=== PATIENT | male | born 1940 | race Caucasian/White ===

== ENCOUNTER → 2017-06-26 | Outpatient (CLI) | payer OTHER ==
[~2017-06-26] MED LIST: ASPEC81 PO; ATV1 PO; BROM0.07 OPL; CHOL20007 PO; DORZ1SOL6 OPB; HYDR-4079 PO; ISOS60TA25 PO; LISI-789 PO; METO50TA16 PO; NIFE30TA83 PO; NTRGSL/4 UT; OMEP20CA9 PO; PRED1SUS3 OPL; SIMV40TA2 PO
[2017-06-26 13:25] LABS: BASO % 0.6 %; BASO ABS # 0.05 K/uL (0-0.2); COMPLETE YES; HEMATOCRIT 41.8 % (42-52); IG% 0.2 %; LYMPH % 30.2 %; LYMPH ABS # 2.53 K/uL (1.2-3.4); MEAN CELL VOLUME 92.1 fL (80-100); MEAN CORPUSCULAR HEMOGLOBIN 31.3 pg (25-34); MEAN PLATELET VOLUME 10.8 fL (7.4-10.4); PLATELET COUNT 225 K/uL (130-400); RED BLOOD COUNT 4.54 M/uL (4.7-6.1); WHITE BLOOD COUNT 8.39 K/uL (4.8-10.8)
[2017-06-26 13:34] LABS: ESTIMATED AVERAGE GLUCOSE 117 mg/dl; HA1C FLAG Normal (Normal)
[2017-06-26 14:01] LABS: ALT/SGPT 18 U/L (12-78); BLOOD UREA NITROGEN 14 mg/dl (7-18); BUN/CREATININE RATIO 17.9 (10-20); CALCIUM 8.9 mg/dl (8.5-10.1); CARBON DIOXIDE 25 mmol/L (21-32); CHLORIDE 108 mmol/L (98-107); CHOLESTEROL 145 mg/dl (0-200); CHOLESTEROL/HDL RATIO 2.6; CREATININE 0.78 mg/dl (0.60-1.40); GLUCOSE 104 mg/dl (70-99); HDL CHOLESTEROL 55 mg/dl; LDL CHOLESTEROL CALCULATED 57 mg/dl; POTASSIUM 4.1 mmol/L (3.5-5.1); SODIUM 140 mmol/L (136-145); TRIGLYCERIDES 163 mg/dl (0-150); VERY LOW DENSITY LIPOPROT CALC 33 mg/dl
[2017-06-26 14:04] LABS: ALB/GLOB RATIO 1.1 (0.9-2); ALKALINE PHOSPHATASE 54 U/L (45-117); AST/SGOT 18 U/L (15-37)
--- NOTE | 2017-07-08 10:47 | CODING QUERY MEDICAL NECESSITY ---
CQSUPPORTING DIAGNOSIS NEEDED A supporting diagnosis is required for the test/procedure performed on this patient in order for us to be reimbursed by the patient's insurance. Please provide a supporting diagnosis for the following test/procedure listed below next to the test name along with your signature. *If there is no additional diagnosis for this patient that would support the following test/procedure please document that below next to the test/procedure. Test(s)/Procedure(s) that require a supporting diagnosis: DOS 06/26/17 GLYCATED HEMOGLOBIN TEST LIPID TEST Provider Signature: Date: Thank you Fanta Varma Health Information Management Once completed, please kindly fax back to [phone] For questions please call [phone]
== END | disposition home or self-care (01) ==
LOC: C.LABBC 10:05
PROVIDERS: ATTEND Internal Medicine
DX: G89.4 Chronic pain syndrome (principal); E55.9 Vitamin D deficiency, unspecified

== ENCOUNTER 2021-07-12 10:06 | Inpatient (IN) ==
--- NOTE | 2021-07-12 10:28 | XRay Report ---
XR chest 1V portable HISTORY: Atypical Chest Pain COMPARISON: None. FINDINGS: No pneumothorax. The heart is mildly enlarged. There is diffuse interstitial/vascular thick ening most pronounced at the lung bases with small bilateral pleural effusions. This likely represent s mild pulmonary edema. Otherwise, no focal lung consolidations. IMPRESSION: Cardiomegaly with mild interstitial pulmonary edema and small bilateral pleural effusions. ACT 112: Negative or not required by law. Electronically signed by: Roger Burt M.D. 07/12/2021 10:27 AM
[2021-07-12] MEDS ORDERED: dilTIAZem HCl 5 MG/ML 5 ML VIAL IV STA ×2 (10:43→22:42)
[2021-07-12] MEDS ORDERED: STAT IV Infusion **Titration per Protocol STA (10:43)
[2021-07-12] MEDS ORDERED: dilTIAZem HCL 125 MG in DEXTROSE 5% 100 ML IV SCH (10:45)
--- NOTE | 2021-07-12 10:57 | Emergency Department Note ---
Impression & Plan Atrial fibrillation with rapid ventricular response, CHF (congestive heart failure), Precordial chest pain, Pedal edema ED Provider Note NAME: BRENTON HARPER AGE: 80 SEX: M : 1940 ARRIVES VIA: Walk-In INFORMANT: [Patient] ED PROVIDER(S): [Thomas Mathews MD] CHIEF COMPLAINT: Chest pain HISTORY OF PRESENT ILLNESS: The patient is a 80-year-old male who presents with 2 weeks of some edema to his feet and legs, some chest tightness and some increasing shortness of breath. No fever, no cough. The patient is vaccinated against COVID-19. The patient has not had any Covid exposures. The patient has noticed some discomfort across his chest. He states it is more of a tightness than anything. Its mild in severity. He has not fallen, there has been no vomiting or diarrhea. He is not sure if he took his morning medications today or not. REVIEW OF SYSTEMS: See HPI for pertinent positives and negatives. A total of ten systems were reviewed and were otherwise negative. PMHx/PSHx: See Below SOCIAL HISTORY: See Below. PHYSICAL EXAM: GENERAL: Patient is in no acute distress. HEENT: No acute trauma, normocephalic atraumatic, mucous membranes moist, no nasal congestion, no scleral icterus. NECK: No stridor, no adenopathy, no meningismus, trachea is midline. LUNGS: Clear to auscultation bilaterally, no wheeze, no rhonchi, breath sounds equal. HEART: Tachycardic with what appears to be a regular rhythm, subtle systolic murmur. ABDOMEN: Soft, nontender, bowel sounds positive, no hernias, no peritonitis. EXTREMITIES: No cyanosis, moderate bilateral pedal edema, full range of motion of all the joints without pain or difficulty, no signs for acute trauma. NEUROLOGIC: Oriented x 3, no acute motor or sensory deficits, no focal weakness. SKIN: No rash, no jaundice, no diaphoresis. DIFFERENTIAL DIAGNOSIS: Cardiac ischemia, aortic dissection, COVID-19, dysrhythmia, A. fib, a flutter, SVT, pulmonary embolism, pneumothorax, pneumonia, pericarditis, myocarditis, esophageal rupture, GERD, cholecystitis, pancreatitis, musculoskeletal, as well as other pathologies. EMERGENCY DEPARTMENT COURSE/PROCEDURES: ECG: Indication was shortness of breath. The ECG shows what appears to be atrial fibrillation with a rate of 145. There is no ST elevation, no PVCs. The QTc is 462. Repeat EKG: Indication was tachycardia. ECG shows atrial fibrillation with a rate of 109. There is no ST elevation, no PVCs. The QTc is 474. Compared to an ECG from earlier today, the rate has decreased. Continuous Cardiac Monitoring: An order was placed for continuous cardiac monitoring. The monitor shows a rate of 153 with atrial fibrillation. Critical Care Note: I have personally spent 47 minutes of critical care time in the direct management of this patient. This includes bedside care, interpretation of diagnostic studies, and testing, discussion with consultants, patient, and family members, and other required patient management activities. This 47 minutes is in excess of all separately billable procedures. MEDICAL DECISION MAKING: There is no leukocytosis or worrisome anemia. There is a normal platelet count. No coagulopathy. No significant electrolyte abnormality or kidney failure. No concerning liver enzyme elevation. The patient appeared to be in a euthyroid state. ECG shows what appears to be a rapid atrial fibrillation, no acute ischemia. Cardiac enzyme testing x1 is not consistent with acute cardiac injury. Chest x-ray shows some fluid overload/CHF. BNP is elevated consistent with CHF and fluid overload. Covid testing returned negative. I was approached by nursing staff to see the patient as he was quite tachycardic. Patient was aggressively managed. Patient was given a bolus of IV diltiazem. He was then placed on a diltiazem drip. This did help control the heart rate and the patient seemed to be improved. The patient was given IV Lasix for the CHF. I did speak with the patient and his family, I spoke with the medical case worker. The on-call hospitalist has been consulted. Admission is warranted. Past Med/Surg History Medical History (Updated 07/12/21 @ 16:04 by Thomas Mathews MD) History of kidney stones History of skin cancer Hypertension PVC (premature ventricular contraction) Surgical History History of angioplasty History of cardiac cath History of cataract extraction with lens replacement History of kidney surgery History of nasal surgery History of tonsillectomy and adenoidectomy History of wisdom tooth extraction Family History Father Lung cancer Aneurysm of abdominal aorta Aneurysm, thoracoabdominal aortic Mother Emphysema of lung Denies family history of Ovarian cancer Prostate cancer Diabetes Myocardial infarction Breast cancer Hypertension Social History Smoking Status: Former smoker Tobacco Type: Cigarettes Age Started Using Tobacco: 17; Years Smoked: 31; Cigarettes Per Day: states occassionally will have a cigarette to this day; Second Hand Exposure: No; Hx Alcohol Use: Yes Alcohol type: wine Alcohol Intake Frequency: Monthly or Less Alcohol Intake Frequency Comment: social Hx Substance Use: No Preferred Language: [place] Citizen Communication Ability: Effective Visual Impairment: Limited Hearing Ability: Normal marital status: Current Living Situation: Spouse current occupational status: retired How many Children do You have: 2 Feels Safe at Home: Yes Childhood Exposure to Second-Hand Smoke: Yes caffeine: Yes (drinks coffee daily, occassionally soda, rarely tea ) Dental Care, Regularly: Yes Physical Activity Frequency: Does not Exercise Physical Activity Frequency Comment: due to his back pain Seatbelt Use: always Sunscreen Use: No Allergies Allergies Allergy/AdvReac Type Severity Reaction Status Date / Time fluorescein Allergy Unknown UNKNOWN Verified 07/12/21 12:48 Iodinated Contrast Media Allergy Unknown HIVES Verified 07/12/21 12:48 shellfish derived Allergy Unknown HIVES Verified 07/12/21 12:48 Sulfa (Sulfonamide Allergy Unknown RASH/HIVES Verified 07/12/21 12:48 Antibiotics) Home Meds Home Medications Medication Instructions Recorded Confirmed cholecalciferol (vitamin D3) 25 2,000 units PO QAM cap 04/26/19 07/12/21 mcg (1,000 unit) capsule (Vitamin D3) dorzolamide 22.3 mg-timolol 6.8 1 drops OP BID ml 04/26/19 07/12/21 mg/mL eye drops (Cosopt) isosorbide mononitrate 60 mg 60 mg PO QAM tab 04/26/19 07/12/21 tablet,extended release 24 hr lisinopril 2.5 mg tablet (Zestril) 2.5 mg PO QAM tab 04/26/19 07/12/21 metoprolol tartrate 50 mg tablet 50 mg PO BID tab 04/26/19 07/12/21 nifedipine 30 mg tablet,extended 30 mg PO QAM tab 04/26/19 07/12/21 release simvastatin 40 mg tablet (Zocor) 40 mg PO HS tab 04/26/19 07/12/21 nitroglycerin 0.4 mg sublingual 0.4 mg SL Q5M PRN tab 07/24/19 07/12/21 tablet diclofenac sodium 1 % topical gel 4 g TOP QID PRN gm 03/13/21 07/12/21 (Voltaren Arthritis Pain) Lactobacillus rhamnosus GG 10 1 cap PO QDL 07/12/21 07/12/21 billion cell capsule (Culturelle) alfuzosin 10 mg tablet,extended 10 mg PO QDD 07/12/21 07/12/21 release 24 hr (Uroxatral) aspirin 81 mg tablet,delayed 81 mg PO QAM 07/12/21 07/12/21 release (Aspirin Low Dose) multivitamin (Daily Multi-Vitamin) 1 tab PO QAM 07/12/21 07/12/21 omeprazole 20 mg capsule,delayed 20 mg PO QAM 07/12/21 07/12/21 release Previous Rx's Medication Instructions Recorded hydrocodone 10 mg-acetaminophen 1 tab PO TID PRN #90 tab 06/20/21 325 mg tablet lorazepam 1 mg tablet (Ativan) 1 mg PO DAILY PRN #30 tab 06/20/21 Results & Data (ED) Vital Signs Vital Signs - 24 hr 07/12/21 10:09 07/12/21 10:30 07/12/21 10:34 Temperature 36.3 C L Temperature Source Temporal Artery Scan Pulse Rate 153 H 144 H Pulse Rate [Finger] 144 H Pulse Rate from SpO2 Sensor Pulse Rhythm [Finger] Irregular Respiratory Rate 22 16 20 Blood Pressure Blood Pressure [Right Arm] 135/104 H Blood Pressure Mean Blood Pressure Mean [Right Arm] 114 Pulse Oximetry 95 Oxygen Delivery Method Room Air Sepsis Recent Fever Within 48 Hours No Sepsis New/Unexplained Change in Mental Status No Sepsis Action Taken by Nursing No Action Required 07/12/21 10:36 07/12/21 11:00 07/12/21 11:06 Temperature Temperature Source Pulse Rate 117 H Pulse Rate [Finger] Pulse Rate from SpO2 Sensor 115 H Pulse Rhythm [Finger] Respiratory Rate 12 Blood Pressure Blood Pressure [Right Arm] Blood Pressure Mean Blood Pressure Mean [Right Arm] Pulse Oximetry 96 94 Oxygen Delivery Method Room Air Room Air Room Air Sepsis Recent Fever Within 48 Hours Sepsis New/Unexplained Change in Mental Status Sepsis Action Taken by Nursing 07/12/21 11:08 07/12/21 11:15 07/12/21 11:19 Temperature Temperature Source Pulse Rate 132 H Pulse Rate [Finger] 130 H Pulse Rate from SpO2 Sensor 146 H Pulse Rhythm [Finger] Irregular Respiratory Rate 20 26 H Blood Pressure Blood Pressure [Right Arm] 141/104 H Blood Pressure Mean Blood Pressure Mean [Right Arm] 116 Pulse Oximetry 96 96 96 Oxygen Delivery Method Room Air Room Air Room Air Sepsis Recent Fever Within 48 Hours Sepsis New/Unexplained Change in Mental Status Sepsis Action Taken by Nursing 07/12/21 11:30 07/12/21 11:45 07/12/21 12:00 Temperature Temperature Source Pulse Rate 142 H 149 H 143 H Pulse Rate [Finger] Pulse Rate from SpO2 Sensor Pulse Rhythm [Finger] Respiratory Rate 24 20 25 H Blood Pressure 152/115 H 147/101 H Blood Pressure [Right Arm] Blood Pressure Mean 127 116 Blood Pressure Mean [Right Arm] Pulse Oximetry Oxygen Delivery Method Room Air Sepsis Recent Fever Within 48 Hours Sepsis New/Unexplained Change in Mental Status Sepsis Action Taken by Alf Medications Current Medication List: was personally reviewed by me Laboratory Data Attestation: I reviewed the patient's lab results. Result diagrams: 07/12/21 10:35 07/12/21 10:35 Lab Results 07/12/21 07/12/21 07/12/21 Range/Units 10:35 10:35 10:35 WBC 10.19 (4.8-10.8) K/uL RBC 4.06 L (4.7-6.1) M/uL Hgb 13.5 L (14.0-18.0) g/dL Hct 38.7 L (42-52) % MCV 95.3 (80-100) fL MCH 33.3 (25-34) pg MCHC 34.9 (32-36) g/dL RDW Std Deviation 45.4 (36.4-46.3) fL RDW Coeff of August 13.5 (11.5-14.5) % Plt Count 248 (130-400) K/uL MPV 11.4 H (7.4-10.4) fL Immature Gran % (Auto) 0.1 % Neut % (Auto) 75.8 % Lymph % (Auto) 15.6 % Cavalier % (Auto) 6.8 % Eos % (Auto) 1.3 % Baso % (Auto) 0.4 % Neut # (Auto) 7.73 H (1.4-6.5) K/uL Lymph # (Auto) 1.59 (1.2-3.4) K/uL Cavalier # (Auto) 0.69 H (0.11-0.59) K/uL Eos # (Auto) 0.13 (0-0.5) K/uL Baso # (Auto) 0.04 (0-0.2) K/uL Immature Gran # (Auto) 0.01 (0.00-0.02) K/uL PT 10.7 (9.0-12.0) Seconds INR 1.1 (0.9-1.1) APTT 24.7 (21.0-31.0) Seconds PTT Ratio 0.9 Sodium 138 (136-145) mmol/L Potassium 4.0 (3.5-5.1) mmol/L Chloride 109 H (98-107) mmol/L Carbon Dioxide 24 (21-32) mmol/L Anion Gap 5.0 (3-11) BUN 18 (7-18) mg/dl Creatinine 0.97 (0.6-1.4) mg/dl Est Cr Clr Drug Dosing 74.1 ml/min Est GFR ( Amer) 84.5 ml/min Est GFR (Non-Af Amer) 72.9 ml/min BUN/Creatinine Ratio 19.0 (10-20) Glucose 124 H (70-99) mg/dl Calcium 9.4 (8.5-10.1) mg/dl Magnesium 2.1 (1.8-2.4) mg/dl Total Bilirubin 1.1 H (0.2-1) mg/dl AST 14 L (15-37) U/L ALT 15 (12-78) U/L Alkaline Phosphatase 68 (45-117) U/L Troponin I < 0.015 (0-0.045) ng/ml NT-Pro-B Natriuret Pep 3035 H (0-1800) pg/ml Total Protein 7.7 (6.4-8.2) gm/dl Albumin 3.7 (3.4-5.0) gm/dl Globulin 4.0 (2.5-4.0) gm/dl Albumin/Globulin Ratio 0.9 (0.9-2) TSH 1.620 (0.300-4.500) uIu/ml COVID-19 Eval Order SARS-CoV-2 (PCR) (Negative) 07/12/21 07/12/21 07/12/21 Range/Units 10:35 11:26 11:26 WBC (4.8-10.8) K/uL RBC (4.7-6.1) M/uL Hgb (14.0-18.0) g/dL Hct (42-52) % MCV (80-100) fL MCH (25-34) pg MCHC (32-36) g/dL RDW Std Deviation (36.4-46.3) fL RDW Coeff of August (11.5-14.5) % Plt Count (130-400) K/uL MPV (7.4-10.4) fL Immature Gran % (Auto) % Neut % (Auto) % Lymph % (Auto) % Cavalier % (Auto) % Eos % (Auto) % Baso % (Auto) % Neut # (Auto) (1.4-6.5) K/uL Lymph # (Auto) (1.2-3.4) K/uL Cavalier # (Auto) (0.11-0.59) K/uL Eos # (Auto) (0-0.5) K/uL Baso # (Auto) (0-0.2) K/uL Immature Gran # (Auto) (0.00-0.02) K/uL PT (9.0-12.0) Seconds INR (0.9-1.1) APTT (21.0-31.0) Seconds PTT Ratio Sodium (136-145) mmol/L Potassium (3.5-5.1) mmol/L Chloride (98-107) mmol/L Carbon Dioxide (21-32) mmol/L Anion Gap (3-11) BUN (7-18) mg/dl Creatinine (0.6-1.4) mg/dl Est Cr Clr Drug Dosing ml/min Est GFR ( Amer) ml/min Est GFR (Non-Af Amer) ml/min BUN/Creatinine Ratio (10-20) Glucose (70-99) mg/dl Calcium (8.5-10.1) mg/dl Magnesium Cancelled (1.8-2.4) mg/dl Total Bilirubin (0.2-1) mg/dl AST (15-37) U/L ALT (12-78) U/L Alkaline Phosphatase (45-117) U/L Troponin I (0-0.045) ng/ml NT-Pro-B Natriuret Pep Cancelled (0-1800) pg/ml Total Protein (6.4-8.2) gm/dl Albumin (3.4-5.0) gm/dl Globulin (2.5-4.0) gm/dl Albumin/Globulin Ratio (0.9-2) TSH Cancelled (0.300-4.500) uIu/ml COVID-19 Eval Order Covid19 at [facility] SARS-CoV-2 (PCR) NEGATIVE (Negative) Administered Medications Heparin Sodium/Dextrose (Heparin Sodium/Dextrose) 25,000 units in 500 mls @ 20 mls/hr IV .Q24H SHERYL; Protocol Stop: 08/11/21 11:59 Last Admin: 07/12/21 12:21 Dose: 1,000 units/hr, 20 mls/hr Documented by: [id number] Cosigned by: [id number] Furosemide 40 mg/ Syringe 4 mls @ 4 mls/min IV Q8 SHERYL Stop: 08/11/21 15:59 Last Admin: 07/12/21 15:37 Dose: Not Given Documented by: [id number] Discontinued Medications Diltiazem HCl (Diltiazem Hcl 5 Mg/Ml 5 Ml Vial) 15 mg IV NOW STA Stop: 07/12/21 10:44 Last Admin: 07/12/21 10:49 Dose: 15 mg Documented by: [id number] Cosigned by: [id number] Furosemide (Furosemide 40 Mg/4 Ml Vial) 40 mg IV NOW STA Stop: 07/12/21 11:08 Last Admin: 07/12/21 11:22 Dose: 40 mg Documented by: [id number] Furosemide (Furosemide 40 Mg/4 Ml Vial) Confirm Administered Dose 40 mg IV .STK- MED ONE Stop: 07/12/21 15:35 Last Admin: 07/12/21 15:37 Dose: 40 mg Documented by: [id number] Diltiazem HCl 125 mg/ Dextrose 125 mls @ 10 mls/hr IV .[id number] [facility]; Protocol Stop: 08/11/21 10:44 Last Titration: 07/12/21 12:13 Dose: 0 mg/hr, 0 mls/hr Documented by: [id number] Cosigned by: [id number] Titration: 07/12/21 11:56 Dose: 0 mg/hr, 0 mls/hr Documented by: [id number] Cosigned by: [id number] Titration: 07/12/21 11:25 Dose: 10 mg/hr, 10 mls/hr Documented by: [id number] Cosigned by: [id number] Admin: 07/12/21 11:03 Dose: 5 mg/hr, 5 mls/hr Documented by: [id number] Cosigned by: [id number] Metoprolol Tartrate (Metoprolol Tartrate 1 Mg/Ml Vial) 5 mg IV NOW STA Stop: 07/12/21 11:49 Last Admin: 07/12/21 12:16 Dose: 5 mg Documented by: [id number] Metoprolol Tartrate (Metoprolol Tartrate 50 Mg Tab) 50 mg PO NOW STA Stop: 07/12/21 11:49 Last Admin: 07/12/21 12:19 Dose: 50 mg Documented by: [id number] Metoprolol Tartrate (Metoprolol Tartrate 1 Mg/Ml Vial) 5 mg IV NOW STA Stop: 07/12/21 12:47 Last Admin: 07/12/21 12:50 Dose: 5 mg Documented by: [id number] Metoprolol Tartrate (Metoprolol Tartrate 1 Mg/Ml Vial) 5 mg IV NOW STA Stop: 07/12/21 14:08 Last Admin: 07/12/21 14:11 Dose: 5 mg Documented by: [id number] Miscellaneous (Stat Iv Infusion Titration Per Protocol) 1 ea N/A NOW STA Stop: 07/12/21 10:44 Last Admin: 07/12/21 11:31 Dose: Not Given Documented by: [id number] Imaging Data Radiologist's Impression: Chest X-Ray 07/12/21 10:14 XR chest 1V portable HISTORY: Atypical Chest Pain COMPARISON: None. FINDINGS: No pneumothorax. The heart is mildly enlarged. There is diffuse i nterstitial/vascular thickening most pronounced at the lung bases with small bilateral pleural effusions. This likely represents mild pulmonary edema. Otherwise, no focal lung consolidations. IMPRESSION: Cardiomegaly with mild interstitial pulmonary edema and small bilateral pleural effusions. ACT 112: Negative or not required by law. Electronically signed by: Roger Burt M.D. 07/12/2021 10:27 AM Discharge Plan Visit Data Chief Complaint: Chest Pain Stated Complaint: SWOLLEN LEGS, CHEST PAINS, SOB ED Provider: Thomas Mathews Discharge Problem: Atrial fibrillation with rapid ventricular response, CHF (congestive heart failure), Precordial chest pain, Pedal edema Patient Disposition: Admitted As Inpatient Condition: Fair Discharge Instructions Interventions: ED Discharge Assessment Last Done: 07/12/21 15:48
[2021-07-12 11:01] LABS: Basophils # (auto) 0.04 K/uL (0-0.2); Basophils % (auto) 0.4 %; Eosinophils # (auto) 0.13 K/uL (0-0.5); Eosinophils % (auto) 1.3 %; Hematocrit (blood only) 38.7 % (42-52); Hemoglobin 13.5 g/dL (14.0-18.0); Immature Granulocytes # (auto) 0.01 K/uL (0.00-0.02); Immature Granulocytes % (auto) 0.1 %; Lymphocytes # (auto) 1.59 K/uL (1.2-3.4); Lymphocytes % (auto) 15.6 %; Mean Corpuscular Hemoglobin 33.3 pg (25-34); Mean Corpuscular Hgb Conc 34.9 g/dL (32-36); Mean Corpuscular Volume 95.3 fL (80-100); Mean Platelet Volume 11.4 fL (7.4-10.4); Monocytes # (auto) 0.69 K/uL (0.11-0.59); Monocytes % (auto) 6.8 %; Neutrophils # (auto) 7.73 K/uL (1.4-6.5); Neutrophils % (auto) 75.8 %; Platelet Count 248 K/uL (130-400); RDW Coefficient of Variation 13.5 % (11.5-14.5); RDW Standard Deviation 45.4 fL (36.4-46.3); Red Blood Count 4.06 M/uL (4.7-6.1); White Blood Count 10.19 K/uL (4.8-10.8)
[2021-07-12] MEDS ORDERED: FUROSEMIDE 40 MG/4 ML VIAL IV STA (11:07)
[2021-07-12 11:17] LABS: INR 1.1 (0.9-1.1); Partial Thromboplastin Ratio 0.9; Partial Thromboplastin Time 24.7 Seconds (21.0-31.0); Prothrombin Time 10.7 Seconds (9.0-12.0)
[2021-07-12 11:21] LABS: Alanine Aminotransferase 15 U/L (12-78); Albumin Level 3.7 gm/dl (3.4-5.0); Aspartate Aminotransferase 14 U/L (15-37); Bilirubin,Total 1.1 mg/dl (0.2-1); Blood Urea Nitrogen 18 mg/dl (7-18); Calcium 9.4 mg/dl (8.5-10.1); Carbon Dioxide 24 mmol/L (21-32); Chloride 109 mmol/L (98-107); Creatinine Clr Calc Pharmacy 74.1 ml/min; Est GFR (African American) 84.5 ml/min; Est GFR (Non-African American) 72.9 ml/min; Glucose 124 mg/dl (70-99); Magnesium 2.1 mg/dl (1.8-2.4); Sodium 138 mmol/L (136-145)
[2021-07-12 11:32] LABS: Albumin Globulin Ratio 0.9 (0.9-2); Alkaline Phosphatase 68 U/L (45-117); NT Pro B Type Natriuretic Pept 3035 pg/ml (0-1800); Total Protein 7.7 gm/dl (6.4-8.2); Troponin I < 0.015 ng/ml (0-0.045)
[2021-07-12] MEDS ORDERED: Heparin IV Adult Wt-Based Low-Dose *NO* Bolus Protocol IV SCH (11:46)
[2021-07-12] MEDS ORDERED: METOPROLOL TARTRATE 1 MG/ML VIAL IV STA ×5 (11:48→19:34)
[2021-07-12] MEDS ORDERED: METOPROLOL TARTRATE 50 MG TAB PO STA (11:48)
[2021-07-12] MEDS: HEPARIN SODIUM/DEXTROSE 25,000 UNITS/500 ML BAG IV SCH (12:21)
--- NOTE | 2021-07-12 12:42 | History & Physical Report ---
Date of Service July 12, 2021 Assessment & Plan (1) Afib: Plan: Patient with new onset afib with evidence of worsening HF, unknown of time of onset - CHADSVASC 2, HASBLED- 1 - Rate control at this time- Metoprolol tartrate 50mg PO now, Metoprolol 5mg IV x1 - Metoprolol IV 5mg q4 for HR >110 - Metoprolol 50mg PO BID- may need to increase dose or frequency- follow - Heparin low dose no bolus for anticoagulation- transition to oral agent when appropriate - Cardiology consulted for - rate vs. rhythm control and anticoagulation transition - Continue to diurese and maintain normal electrolytes - Baseline ECG from 2019 with NSR and Incomplete RBBB (2) CHF (congestive heart failure): Plan: HFpEF with exacerbation with evidence of volume overload on physical exam and CXR - Difficult to ascertain whether volume caused #1 or #1 is causing CHF exacerbation - Will need rate controlled- continue BB - Continue to diurese Lasix 40mg IV q8 - ECHO (3) Coronary artery disease: Plan: CAD with angioplasty in 1991 - Stress ECHO in 2020- fixed wall motion abnormality without ischemia- EF 55- 59%, mild MR - Continue Metoprolol dose adjust and frequency adjust for HR control - Continue Isosorbide - Continue ASA - Continue statin simvastatin 40mg daily - Baseline ECG from 2019 with NSR and Incomplete RBBB (4) Hypertension: Plan: Appears well controlled as outpatient with SBP<130s - Continue JOI, metoprolol - Hold Nifedipine - Continue with IV Lasix 40mg IV q8 (5) Hyperlipidemia: Plan: As above (6) AAA (abdominal aortic aneurysm): Plan: 3.1 cm AAA Aug 2020- follows with cardiology for imaging - As above BP, BB, lipid managemnt (7) Atherosclerosis of both carotid arteries: Plan: 50% bilateral without stenosis 2019 - as above (8) Back pain, lumbosacral: Plan: Chronic- is on narcotics at home (9) Obesity: Plan: Continue weight loss efforts as outpatient History of Present Illness Chief Complaint: Shortness of breath Primary Care Provider: Carlos Manuel Baez MD 80 YOM with past medical history of: [place](1991) with angioplasty, CAD, HTN, HLD, Obesity, previous smoker, chronic back pain 3.1 cm AAA. Patient comes in today for complaints of chest tightness and swelling in his bilateral lower legs. This has been going on for the past two weeks. The chest tightness occurs across his chest and is associated with increase in dyspnea. The dyspnea has been worse for the past week. This pressure can come with activity or at rest. He denies any radiation of the pressure or nausea or vomiting and it has not been associated with diaphoresis, light headedness or dizziness. The lower extremity swelling started in his feet about 2 weeks ago an continued to progress to right below the knees. It is equal bilaterally. He denies orthopnea, cough, or secretions. In the EMD, it was noted that he was in narrow complex tachycardia with HR 140-150s. He was given 10mg IV Diltiazem which decreased his HR to 120-130 and was noted to be in new onset atrial fibrill ation. He had routine labs drawn to include BNP and Troponin I. His electrolytes including Magnesium were in normal range, his Troponin I was negative, his BNP was [place] 3035. His TSH is 1.620. He was then placed on a Diltazem drip at 10mg/hour given 40mg IV Lasix and hospitalist service was notified for admission. Patient has not taken his medications at home this morning to include his Metoprolol tartrate of 50mg. Patient will be started on Heparin drip, admitted to PCU for rate control, ECHO, continue to diurese and consult cardiology. Patient follows with [facility]. Patient has received his COVID vaccine and his COVID test on admission is: Allergies Allergy/AdvReac Type Severity Reaction Status Date / Time fluorescein Allergy Unknown UNKNOWN Verified 07/12/21 12:48 Iodinated Contrast Media Allergy Unknown HIVES Verified 07/12/21 12:48 shellfish derived Allergy Unknown HIVES Verified 07/12/21 12:48 Sulfa (Sulfonamide Allergy Unknown RASH/HIVES Verified 07/12/21 12:48 Antibiotics) Home Medications Medication Instructions Recorded Confirmed Type cholecalciferol (vitamin D3) 25 2,000 units PO QAM cap 04/26/19 07/12/21 History mcg (1,000 unit) capsule (Vitamin D3) dorzolamide 22.3 mg-timolol 6.8 1 drops OP BID ml 04/26/19 07/12/21 History mg/mL eye drops (Cosopt) isosorbide mononitrate 60 mg 60 mg PO QAM tab 04/26/19 07/12/21 History tablet,extended release 24 hr lisinopril 2.5 mg tablet (Zestril) 2.5 mg PO QAM tab 04/26/19 07/12/21 History metoprolol tartrate 50 mg tablet 50 mg PO BID tab 04/26/19 07/12/21 History nifedipine 30 mg tablet,extended 30 mg PO QAM tab 04/26/19 07/12/21 History release simvastatin 40 mg tablet (Zocor) 40 mg PO HS tab 04/26/19 07/12/21 History nitroglycerin 0.4 mg sublingual 0.4 mg SL Q5M PRN tab 07/24/19 07/12/21 History tablet diclofenac sodium 1 % topical gel 4 g TOP QID PRN gm 03/13/21 07/12/21 History (Voltaren Arthritis Pain) hydrocodone 10 mg-acetaminophen 1 tab PO TID PRN #90 tab 06/20/21 07/12/21 Rx 325 mg tablet lorazepam 1 mg tablet (Ativan) 1 mg PO DAILY PRN #30 tab 06/20/21 07/12/21 Rx Lactobacillus rhamnosus GG 10 1 cap PO QDL 07/12/21 07/12/21 History billion cell capsule (Culturelle) alfuzosin 10 mg tablet,extended 10 mg PO QDD 07/12/21 07/12/21 History release 24 hr (Uroxatral) aspirin 81 mg tablet,delayed 81 mg PO QAM 07/12/21 07/12/21 History release (Aspirin Low Dose) multivitamin (Daily Multi-Vitamin) 1 tab PO QAM 07/12/21 07/12/21 History omeprazole 20 mg capsule,delayed 20 mg PO QAM 07/12/21 07/12/21 History release Past Med/Surg History Medical History (Updated 07/12/21 @ 16:04 by Thomas Mathews MD) History of kidney stones History of skin cancer Hypertension PVC (premature ventricular contraction) Surgical History History of angioplasty History of cardiac cath History of cataract extraction with lens replacement History of kidney surgery History of nasal surgery History of tonsillectomy and adenoidectomy History of wisdom tooth extraction Family History Father Lung cancer Aneurysm of abdominal aorta Aneurysm, thoracoabdominal aortic Mother Emphysema of lung Denies family history of Ovarian cancer Prostate cancer Diabetes Myocardial infarction Breast cancer Hypertension Social History Smoking Status: Never smoker Tobacco Type: Cigarettes Age Started Using Tobacco: 17; Years Smoked: 31; Cigarettes Per Day: states occassionally will have a cigarette to this day; Second Hand Exposure: No; Hx Alcohol Use: No Hx Substance Use: No Preferred Language: Upper Sorbian Communication Ability: Effective Visual Impairment: Limited Hearing Ability: Normal 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 Beliefs That Will Affect Care: None marital status: Current Living Situation: Spouse current occupational status: retired How many Children do You have: 2 Other Information That Helps Us Care for You: No Feels Safe at Home: Yes Safety Concerns: Feels Safe At This Time Childhood Exposure to Second-Hand Smoke: Yes caffeine: Yes (drinks coffee daily, occassionally soda, rarely tea ) Dental Care, Regularly: Yes Physical Activity Frequency: Does not Exercise Physical Activity Frequency Comment: due to his back pain Seatbelt Use: always Sunscreen Use: No Assistive Devices: None Review of Systems Review of Systems: REVIEW OF SYSTEMS: Constitutional: No fever, sweats or chills Eyes: No diplopia, no worsening or blurred vision ENT: normal hearing, no trouble swallowing Respiratory: (+) dyspnea at rest and with exertion, No cough, sputum, Cardiovascular: (+) chest tightness, leg swelling, No palpitations, Abdomen: No pain, nausea, vomiting, diarrhea or constipation Musculoskeletal: (+) chronic back pain, Neurologic: No weakness, numbness/tingling, or balance problems Psychiatric: No anxiety or depression Skin: No rash or itch Physical Exam Physical Exam: PHYSICAL EXAM: General: awake, alert, no apparent distress Head: Normocephalic, atraumatic ENT: PERRL, EOMI, no pharyngeal exudate, mucous membranes moist Neuro: AAO x 3, speech clear and appropriate, strength intact bilaterally 5/5, sensation intact and equal all extremities and dermatomes, no pronator drift Chest: equal rise and fall of the chest, no accessory muscle use, no heaves or thrills, Clear to auscultation, on room air, Cardiac: Irregular rate and rhythm, afib, skin warm dry, cap refill ~3 seconds, peripheral pulses +2 no JVD, no murmur, 2+ edema in shins, 3+edema to feet and ankles bilaterally GI: NABS x 4 quadrants, soft, nontender to palpation, no rebound, guarding or tenderness : Spontaneously voiding, no pain, no CVA tenderness, Extremities: Normal inspection, no erythema, calfs nontender to palpation Psych: Normal mood and affect Skin: no rash or erythema Results & Data Results & Data ([facility]) Vital Signs (Past 12 Hours) Vital Signs Temp Pulse Pulse Resp BP BP Pulse Ox 07/12/21 11:45 149 H 20 07/12/21 11:30 142 H 24 152/115 H 07/12/21 11:19 130 H 26 H 141/104 H 96 07/12/21 11:15 132 H 20 96 07/12/21 11:08 96 07/12/21 11:00 117 H 12 94 07/12/21 10:36 96 07/12/21 10:34 144 H 20 135/104 H 07/12/21 10:30 144 H 16 07/12/21 10:09 36.3 C L 153 H 22 95 Laboratory Results Abnormal lab results 07/12/21 07/12/21 Range/Units 10:35 10:35 RBC 4.06 L (4.7-6.1) M/uL Hgb 13.5 L (14.0-18.0) g/dL Hct 38.7 L (42-52) % MPV 11.4 H (7.4-10.4) fL Neut # (Auto) 7.73 H (1.4-6.5) K/uL [place] # (Auto) 0.69 H (0.11-0.59) K/uL Chloride 109 H (98-107) mmol/L Glucose 124 H (70-99) mg/dl Total Bilirubin 1.1 H (0.2-1) mg/dl AST 14 L (15-37) U/L NT-Pro-B Natriuret Pep 3035 H (0-1800) pg/ml Diagnostic Findings Chest X-Ray 07/12/21 10:14 XR chest 1V portable HISTORY: Atypical Chest Pain COMPARISON: None. FINDINGS: No pneumothorax. The heart is mildly enlarged. There is diffuse interstitial/vascular thickening most pronounced at the lung bases with small bilateral pleural effusions. This likely represents mild pulmonary edema. Otherwise, no focal lung consolidations. IMPRESSION: Cardiomegaly with mild interstitial pulmonary edema and small bilateral pleural effusions. ACT 112: Negative or not required by law. Electronically signed by: Roger Burt M.D. 07/12/2021 10:27 AM Medications Administered Heparin Sodium/Dextrose (Heparin Sodium/Dextrose) 25,000 units in 500 mls @ 20 mls/hr IV .Q24H SHERYL; Protocol Stop: 08/11/21 11:59 Last Admin: 07/12/21 12:21 Dose: 1,000 units/hr, 20 mls/hr Documented by: [id number] Cosigned by: [id number] Discontinued Medications Home Medications aspirin 81 mg tablet 162 mg PO DAILY tab 04/26/19 [History Confirmed 03/13/21] cholecalciferol (vitamin D3) 25 mcg (1,000 unit) capsule 2,000 units PO DAILY cap 04/26/19 [History Confirmed 03/13/21] dorzolamide 22.3 mg-timolol 6.8 mg/mL eye drops 1 drops OP BID ml 04/26/19 [History Confirmed 03/13/21] isosorbide mononitrate 60 mg tablet,extended release 24 hr 60 mg PO DAILY tab 04/26/19 [History Confirmed 03/13/21] lisinopril 2.5 mg tablet 2.5 mg PO DAILY tab 04/26/19 [History Confirmed 03/13/21] metoprolol tartrate 50 mg tablet 50 mg PO BID tab 04/26/19 [History Confirmed 03/13/21] nifedipine 30 mg tablet,extended release 30 mg PO DAILY tab 04/26/19 [History Confirmed 03/13/21] simvastatin 40 mg tablet 40 mg PO DAILY tab 04/26/19 [History Confirmed 03/13/21] nitroglycerin 0.4 mg sublingual tablet 0.4 mg SL PRN tab 07/24/19 [History Confirmed 03/13/21] multivitamin 1 cap PO DAILY 07/26/19 [History Confirmed 03/13/21] omeprazole 20 mg capsule,delayed release 20 mg PO DAILY #90 cap 09/04/20 [Rx Confirmed 03/13/21] diclofenac sodium 1 % topical gel 4 g TOP QID PRN gm 03/13/21 [History] alfuzosin 10 mg tablet,extended release 24 hr (Uroxatral) 10 mg PO DAILY #90 tab 06/12/21 [Rx Confirmed 06/12/21] hydrocodone 10 mg-acetaminophen 325 mg tablet 1 tab PO TID PRN #90 tab 06/20/21 [Rx] lorazepam 1 mg tablet (Ativan) 1 mg PO DAILY PRN #30 tab 06/20/21 [Rx] Active Medications Heparin Sodium/Dextrose (Heparin Sodium/Dextrose) 25,000 units in 500 mls @ 20 mls/hr IV .Q24H [facility]; Protocol Stop: 08/11/21 11:59 Last Admin: 07/12/21 12:21 Dose: 1,000 units/hr, 20 mls/hr Documented by: Diltiazem HCl (Diltiazem Hcl 5 Mg/Ml 5 Ml Vial) 15 mg IV NOW STA Stop: 07/12/21 10:44 Last Admin: 07/12/21 10:49 Dose: 15 mg Documented by: [id number] Cosigned by: [id number] Furosemide (Furosemide 40 Mg/4 Ml Vial) 40 mg IV NOW STA Stop: 07/12/21 11:08 Last Admin: 07/12/21 11:22 Dose: 40 mg Documented by: [id number] Diltiazem HCl 125 mg/ Dextrose 125 mls @ 10 mls/hr IV .[id number] [facility]; Protocol Stop: 08/11/21 10:44 Last Titration: 07/12/21 12:13 Dose: 0 mg/hr, 0 mls/hr Documented by: [id number] Cosigned by: [id number] Titration: 07/12/21 11:56 Dose: 0 mg/hr, 0 mls/hr Documented by: [id number] Cosigned by: [id number] Titration: 07/12/21 11:25 Dose: 10 mg/hr, 10 mls/hr Documented by: [id number] Cosigned by: [id number] Admin: 07/12/21 11:03 Dose: 5 mg/hr, 5 mls/hr Documented by: [id number] Cosigned by: [id number] Metoprolol Tartrate (Metoprolol Tartrate 1 Mg/Ml Vial) 5 mg IV NOW STA Stop: 07/12/21 11:49 Last Admin: 07/12/21 12:16 Dose: 5 mg Documented by: [id number] Metoprolol Tartrate (Metoprolol Tartrate 50 Mg Tab) 50 mg PO NOW STA Stop: 07/12/21 11:49 Last Admin: 07/12/21 12:19 Dose: 50 mg Documented by: [id number] Miscellaneous (Stat Iv Infusion Titration Per Protocol) 1 ea N/A NOW STA Stop: 07/12/21 10:44 Last Admin: 07/12/21 11:31 Dose: Not Given Documented by: [id number] ECG Additional Comments: Atrial fibrillation with rapid ventricular response Incomplete right bundle branch block Nonspecific ST abnormality Abnormal ECG When compared with ECG of 12-JUL-2021 10:14, (unconfirmed) Previous ECG has undetermined rhythm, needs review Code Status & VTE Plan Code Status CODE: FULL VTE: SCDs, Heparin drip VTE Prophylaxis Plan VTE Prophylaxis will be ordered: Yes Supervising Physician Co-Signing Physician Notes APPRENTICE PAINTER BRUSH Supervision note: I have personally seen and examined the patient and discussed and verified the abarca points of the history and physical along with the plan with OSCAR Small with the following exceptions and/or additions: This patient is an 80-year-old male with a history of HTN, GERD, CAD, hy perlipidemia, obesity, AAA, central retinal vessel occlusion, who presents to the ER with chest pressure shortness of breath and lower extremity edema. He was found to be in rapid atrial fibrillation with rates in the 140s and with evidence of acute on chronic diastolic CHF. He was started on diltiazem drip in the ER with only minimal effect, and was given IV Lasix for volume overload. He has no known history of atrial fibrillation. No weakness, numbness, tingling. No facial droop or slurred speech, no headaches. No history of bleeding. History and ROS reviewed as above Vitals reviewed Gen: AAOx3, NAD HEENT: Anicteric sclerae, EOMI CV: Tachycardic, irregularly irregular no mgr nl S1S2 Pulm: Positive bibasilar crackles, otherwise clear Abd: +BS soft NT ND no masses or hernias Ext: 3+ pitting edema of the feet/ankles/up to mid tibia, 2+ DP pulses Skin: No rashes, warm/dry Neuro: Full strength throughout Labs in radiology studies personally reviewed by me ECG reviewed 80-year-old male here with rapid atrial fibrillation acute on chronic diastolic CHF. TSH normal, electrolytes normal, troponin negative Admit to telemetry -Check echo -Appreciate cardiology consultation-May consider APRIL with cardioversion if not able to control with medications -Stop diltiazem drip and attempt to control with increased doses of p.o. metoprolol -Heparin drip for now, but will likely convert to Eliquis Diurese with IV Lasix and replace electrolytes as needed PG Care Time/CCT Total # of Minutes Spent Total Time Spent with Patient: Total time spent is greater than 50% in coordination of care (as documented) at patient's floor/unit and/or counseling patient: Coding Level of Care Code 89960 Initial Inpt Care Lvl 3 Diagnoses Afib I48.91 Coronary artery disease I25.10 Associated angina: without angina Coronary Disease-Associated Artery/Lesion type: [place] artery [place] vs. transplanted heart: [place] heart Hypertension I10 Hypertension type: essential hypertension Hyperlipidemia E78.2 Hyperlipidemia type: mixed hyperlipidemia Obesity E66.9 CHF (congestive heart failure) I50.9 Atherosclerosis of both carotid arteries I65.23 Back pain, lumbosacral M54.5 AAA (abdominal aortic aneurysm) I71.4 (1) Coronary artery disease Associated angina: without angina Coronary Disease-Associated Artery/Lesion type: [place] artery [place] vs. transplanted heart: [place] heart Qualified Code(s): I25.10 - Atherosclerotic heart disease of [place] coronary artery without angina pectoris (2) Hyperlipidemia Hyperlipidemia type: mixed hyperlipidemia Qualified Code(s): E78.2 - Mixed hyperlipidemia (3) Hypertension Hypertension type: essential hypertension Qualified Code(s): I10 - Essential (primary) hypertension
[2021-07-12] MEDS ORDERED: FUROSEMIDE 40 MG/4 ML VIAL IV SCH (14:00)
--- NOTE | 2021-07-12 14:16 | Cardiology Consultation ---
Date of Consultation July 12, 2021 Assessment & Plan (1) Atrial fibrillation with RVR: (2) Acute heart failure with reduced ejection fraction and diastolic dysfunction: (3) Coronary artery disease: (4) AAA (abdominal aortic aneurysm): 80-year-old patient with paroxysmal atrial fibrillation and rapid ventricular response with acute decompensated heart failure. Mildly reduced left ventricular systolic function noted per bedside echocardiogram. Agree with intravenous furosemide 40 mg 3 times daily. Maintain negative fluid balance. Follow daily weight, GFR, and electrolytes. New onset atrial fibrillation with rapid ventricular response. Suspect 2-week duration given history. Titrate metoprolol to 50 mg 3 times daily. Give additional 5 mg of intravenous Lopressor now. Consider IV Cardizem infusion overnight if heart rates remain difficult to control. IV anticoagulation with heparin. Consider APRIL guided external direct-current cardioversion pending clinical course and response to rate control strategy. All questions answered to satisfaction both the patient and his family members. Thank you for allow me to participate in the care of your patient. History of Present Illness Reason for Consultation: CHF, rapid atrial fib Requesting Physician: Emmett MOORE Attending Physician: Dr. Gunderson History of Present Illness 80-year-old patient presented emergency department with progressive shortness of breath, orthopnea, edema, and weight gain. Symptoms started approximately 14 days ago. Patient declined medical evaluation as recommended by his family members. He presented to the ED today with dyspnea. Treated with intravenous diltiazem, intravenous Lopressor, oral Lopressor, and intravenous furosemide in the ER. Mild clinical improvement noted. Cardiovascular history includes chronic CAD, dyslipidemia, and hypertension. No documented history of atrial fibrillation. Allergies Allergy/AdvReac Type Severity Reaction Status Date / Time fluorescein Allergy Unknown UNKNOWN Verified 07/12/21 12:48 Iodinated Contrast Media Allergy Unknown HIVES Verified 07/12/21 12:48 shellfish derived Allergy Unknown HIVES Verified 07/12/21 12:48 Sulfa (Sulfonamide Allergy Unknown RASH/HIVES Verified 07/12/21 12:48 Antibiotics) Home Medications Medication Instructions Recorded Confirmed Type cholecalciferol (vitamin D3) 25 2,000 units PO QAM cap 04/26/19 07/12/21 History mcg (1,000 unit) capsule (Vitamin D3) dorzolamide 22.3 mg-timolol 6.8 1 drops OP BID ml 04/26/19 07/12/21 History mg/mL eye drops (Cosopt) isosorbide mononitrate 60 mg 60 mg PO QAM tab 04/26/19 07/12/21 History tablet,extended release 24 hr lisinopril 2.5 mg tablet (Zestril) 2.5 mg PO QAM tab 04/26/19 07/12/21 History metoprolol tartrate 50 mg tablet 50 mg PO BID tab 04/26/19 07/12/21 History nifedipine 30 mg tablet,extended 30 mg PO QAM tab 04/26/19 07/12/21 History release simvastatin 40 mg tablet (Zocor) 40 mg PO HS tab 04/26/19 07/12/21 History nitroglycerin 0.4 mg sublingual 0.4 mg SL Q5M PRN tab 07/24/19 07/12/21 History tablet diclofenac sodium 1 % topical gel 4 g TOP QID PRN gm 03/13/21 07/12/21 History (Voltaren Arthritis Pain) hydrocodone 10 mg-acetaminophen 1 tab PO TID PRN #90 tab 06/20/21 07/12/21 Rx 325 mg tablet lorazepam 1 mg tablet (Ativan) 1 mg PO DAILY PRN #30 tab 06/20/21 07/12/21 Rx Lactobacillus rhamnosus GG 10 1 cap PO QDL 07/12/21 07/12/21 History billion cell capsule (Culturelle) alfuzosin 10 mg tablet,extended 10 mg PO QDD 07/12/21 07/12/21 History release 24 hr (Uroxatral) aspirin 81 mg tablet,delayed 81 mg PO QAM 07/12/21 07/12/21 History release (Aspirin Low Dose) multivitamin (Daily Multi-Vitamin) 1 tab PO QAM 07/12/21 07/12/21 History omeprazole 20 mg capsule,delayed 20 mg PO QAM 07/12/21 07/12/21 History release Patient History Medical History (Updated 07/12/21 @ 14:34 by Smooth Kelley DO) History of kidney stones History of skin cancer Hypertension PVC (premature ventricular contraction) Surgical History History of angioplasty History of cardiac cath History of cataract extraction with lens replacement History of kidney surgery History of nasal surgery History of tonsillectomy and adenoidectomy History of wisdom tooth extraction Family History Father Lung cancer Aneurysm of abdominal aorta Aneurysm, thoracoabdominal aortic Mother Emphysema of lung Denies family history of Ovarian cancer Prostate cancer Diabetes Myocardial infarction Breast cancer Hypertension Social History Smoking Status: Former smoker Tobacco Type: Cigarettes Age Started Using Tobacco: 17; Years Smoked: 31; Cigarettes Per Day: states occassionally will have a cigarette to this day; Second Hand Exposure: No; Hx Alcohol Use: Yes Alcohol type: wine Alcohol Intake Frequency: Monthly or Less Alcohol Intake Frequency Comment: social Hx Substance Use: No Preferred Language: Setswana Communication Ability: Effective Visual Impairment: Limited Hearing Ability: Normal marital status: Current Living Situation: Spouse current occupational status: retired How many Children do You have: 2 Feels Safe at Home: Yes Childhood Exposure to Second-Hand Smoke: Yes caffeine: Yes (drinks coffee daily, occassionally soda, rarely tea ) Dental Care, Regularly: Yes Physical Activity Frequency: Does not Exercise Physical Activity Frequency Comment: due to his back pain Seatbelt Use: always Sunscreen Use: No Review of Systems Review of Systems: All systems reviewed & are unremarkable except as noted in Subjective Physical Exam Constitutional: + ill appearing and + obese Respiratory: normal respiratory effort; no respiratory distress and no retractions Auscultation: + rales (Bases bilateral); no rhonchi and no wheezes Cardiovascular: Rate/Rhythm: + tachycardic and + irregularly irregular Heart Sounds: normal S1 and normal S2; no murmur Vessels: + JVD Extremities: + edema (2+ bilateral pedal and pretibial edema) Gastrointestinal (Abdomen): Inspection/Auscultation: abdomen normal to inspection and normal bowel sounds; abdomen not distended Percussion/Palpation: abdomen soft; abdomen nontender, no guarding and abdomen not rigid Neurologic: CN's II-XI intact bilaterally and moves all extremities; no focal motor deficits Motor/Sensory: no tremor Psychiatric: Orientation: alert and oriented x 3 Results & Data ([facility]) Vital Signs (Past 12 Hours) Vital Signs Temp Pulse Pulse Resp BP BP Pulse Ox 07/12/21 14:11 135 H 07/12/21 14:00 135 H 24 149/118 H 07/12/21 13:45 127 H 16 07/12/21 13:30 137 H 31 H 137/108 H 07/12/21 13:15 119 H 17 07/12/21 13:00 135 H 28 H 126/90 07/12/21 12:50 127 H 07/12/21 12:45 141 H 16 07/12/21 12:30 138 H 31 H 138/101 H 07/12/21 12:27 123 H 07/12/21 12:16 154 H 149/119 H 07/12/21 12:15 152 H 28 H 149/119 H 07/12/21 12:00 143 H 25 H 147/101 H 07/12/21 11:45 149 H 20 07/12/21 11:30 142 H 24 152/115 H 07/12/21 11:19 130 H 26 H 141/104 H 96 07/12/21 11:15 132 H 20 96 07/12/21 11:08 96 07/12/21 11:00 117 H 12 94 07/12/21 10:36 96 07/12/21 10:34 144 H 20 135/104 H 07/12/21 10:30 144 H 16 07/12/21 10:09 36.3 C L 153 H 22 95 (1) Coronary artery disease Coronary Disease-Associated Artery/Lesion type: [place] artery [place] vs. transplanted heart: [place] heart Associated angina: without angina Qualified Code(s): I25.10 - Atherosclerotic heart disease of [place] coronary artery without angina pectoris
[2021-07-12] MEDS ORDERED: FUROSEMIDE 40 MG/4 ML VIAL IV ONE (15:34)
[2021-07-12] MEDS: FUROSEMIDE 40 MG in SYRINGE 0 ML IV SCH ×2 (15:37→21:13)
[2021-07-12] MEDS ORDERED: ONDANSETRON INJ 2 MG/ML 2 ML VIAL IV PRN (19:05)
[2021-07-12] MEDS ORDERED: METOPROLOL TARTRATE 1 MG/ML VIAL IV PRN (19:05)
[2021-07-12] MEDS ORDERED: NITROGLYCERIN SL 0.4 MG/TAB TAB SL PRN (19:05)
[2021-07-12] MEDS ORDERED: ACETAMINOPHEN 325 MG TAB PO PRN (19:05)
[2021-07-12] MEDS ORDERED: LORazepam 1 MG TAB PO PRN ×2 (19:12→23:04)
[2021-07-12 19:31] LABS: Partial Thromboplastin Ratio 1.1; Partial Thromboplastin Time 28.6 Seconds (21.0-31.0)
[2021-07-12] MEDS: METOPROLOL TARTRATE 50 MG TAB PO SCH (19:32)
[2021-07-12] MEDS: HYDROcodone/ACETAMINOPHEN 10/325 TAB PO PRN (19:52)
[2021-07-12] MEDS ORDERED: HEPARIN SOD (PORCINE) 1000 UNIT/ML IV ONE (20:15)
[2021-07-12] MEDS: ALFUZOSIN HCL 10 MG TAB PO SCH (20:27)
[2021-07-12] MEDS ORDERED: METOPROLOL TARTRATE 50 MG TAB PO SCH (21:00)
[2021-07-12] MEDS: DORZOLAMIDE/TIMOLOL 22.3/6.8MG/ML 10 ML BTL OP SCH (21:12)
[2021-07-12] MEDS: SIMVASTATIN 40 MG TAB PO SCH (21:13)
[2021-07-12] MEDS ORDERED: dilTIAZem HCL 30 MG TAB PO ONE (23:02)
[2021-07-13] MEDS: METOPROLOL TARTRATE 50 MG TAB PO SCH ×2 (02:37→11:52)
[2021-07-13 02:39] LABS: Basophils # (auto) 0.04 K/uL (0-0.2); Basophils % (auto) 0.4 %; Eosinophils # (auto) 0.05 K/uL (0-0.5); Eosinophils % (auto) 0.6 %; Hemoglobin 12.8 g/dL (14.0-18.0); Immature Granulocytes # (auto) 0.01 K/uL (0.00-0.02); Immature Granulocytes % (auto) 0.1 %; Lymphocytes % (auto) 29.2 %; Mean Corpuscular Hemoglobin 30.9 pg (25-34); Mean Corpuscular Hgb Conc 33.7 g/dL (32-36); Mean Corpuscular Volume 91.8 fL (80-100); Mean Platelet Volume 10.8 fL (7.4-10.4); Neutrophils # (auto) 5.39 K/uL (1.4-6.5); Neutrophils % (auto) 60.7 %; Platelet Count 189 K/uL (130-400); RDW Coefficient of Variation 13.2 % (11.5-14.5); RDW Standard Deviation 44.2 fL (36.4-46.3); Red Blood Count 4.14 M/uL (4.7-6.1); White Blood Count 8.89 K/uL (4.8-10.8)
[2021-07-13 03:00] LABS: Partial Thromboplastin Ratio 1.8
[2021-07-13 03:22] LABS: BUN Creatinine Ratio 18.6 (10-20); Creatinine Clr Calc Pharmacy 73.5 ml/min; Est GFR (African American) 84.5 ml/min; Est GFR (Non-African American) 72.9 ml/min; Potassium 3.2 mmol/L (3.5-5.1)
[2021-07-13] MEDS ORDERED: POTASSIUM CHLORIDE CRTAB 20 MEQ TABCR PO STA (03:32)
[2021-07-13] MEDS ORDERED: POTASSIUM CHLORIDE CRTAB 20 MEQ TABCR PO ONE (05:30)
[2021-07-13] MEDS: FUROSEMIDE 40 MG in SYRINGE 0 ML IV SCH (06:01)
--- NOTE | 2021-07-13 07:01 | Electrocardiogram Report ---
Test Reason : Blood Pressure : / mmHG Vent. Rate : 109 BPM Atrial Rate : 122 BPM P-R Int : 000 ms QRS Dur : 092 ms QT Int : 352 ms P-R-T Axes : 000 040 036 degrees QTc Int : 474 ms Atrial fibrillation with rapid ventricular response Incomplete right bundle branch block Nonspecific ST abnormality Abnormal ECG When compared with ECG of 12-JUL-2021 10:14, (unconfirmed) Previous ECG has undetermined rhythm, needs review Confirmed by Bartolo Rendon ([id number]) on 07/13/2021 7:01:46 AM Referred By: REFERRED SELF Confirmed By:Ang Rendon
--- NOTE | 2021-07-13 07:01 | Electrocardiogram Report ---
Test Reason : Blood Pressure : / mmHG Vent. Rate : 145 BPM Atrial Rate : 057 BPM P-R Int : 000 ms QRS Dur : 088 ms QT Int : 298 ms P-R-T Axes : 000 039 029 degrees QTc Int : 462 ms Atrial fibrillation Incomplete right bundle branch block Nonspecific ST abnormality Abnormal ECG When compared with ECG of 28-OCT-2008 09:52, Atrial fibrillation has replaced sinus rhythm Criteria for Inferior-posterior infarct are no longer Present Confirmed by Bartolo Rendon ([id number]) on 07/13/2021 7:00:44 AM Referred By: Confirmed By:Ang Rendon
[2021-07-13] MEDS: PANTOprazole 40 MG TAB PO SCH (08:06)
[2021-07-13] MEDS: ASPIRIN 81 MG ECTAB PO SCH (08:06)
[2021-07-13] MEDS: DORZOLAMIDE/TIMOLOL 22.3/6.8MG/ML 10 ML BTL OP SCH ×2 (08:07→21:01)
[2021-07-13] MEDS ORDERED: LORazepam 0.5 MG/1 ML VIAL IV PRN (08:44)
[2021-07-13] MEDS ORDERED: dilTIAZem HCl 5 MG/ML 5 ML VIAL IV STA (08:47)
[2021-07-13] MEDS ORDERED: dilTIAZem HCl 5 MG/ML 5 ML VIAL IV ONE (08:51)
--- NOTE | 2021-07-13 08:54 | Hospitalist Progress Note ---
Date of Service July 13, 2021 Assessment & Plan (1) Afib: Plan: Patient with new onset afib with evidence of worsening HFrEF - CHADSVASC 2, HASBLED- 1 - Heparin low dose no bolus for anticoagulation- transition to oral agent when appropriate - Cardiology consulted increased metoprolol to 50 mg tid - poor rate control with increased metoprolol did respond favorably to diltiazem in the past, will try although soft blood pressures, did reduce some typical meds ( isosorbide nifedipine and lisinopril) Plan for cardioversion 07/15/21 (2) CHF (congestive heart failure): Plan: HFpEF with exacerbation maybe related to rate, appears euvolmic 07/14 - Will need rate controlled- continue BB - - ECHO shows EF 45-50, global hypo (3) Coronary artery disease: Plan: CAD with angioplasty in 1991 - Stress ECHO in 2020- fixed wall motion abnormality without ischemia, mild MR - Continue Metoprolol dose adjust and adjust for HR control - Continue Isosorbide, reduce dose to help with blood pressure - Continue ASA - Continue statin simvastatin 40mg daily - Baseline ECG from 2019 with NSR and Incomplete RBBB (4) Hypertension: Plan: Appears well controlled as outpatient with SBP<130s - , metoprolol - Hold Nifedipine, lisinoprol (5) Hyperlipidemia: Plan: As above (6) AAA (abdominal aortic aneurysm): Plan: 3.1 cm AAA Aug 2020- follows with cardiology for imaging - As above BP, BB, lipid managemnt (7) Atherosclerosis of both carotid arteries: Plan: 50% bilateral without stenosis 2019 - as above (8) Back pain, lumbosacral: Plan: Chronic- is on narcotics at home (9) Obesity: Plan: Continue weight loss efforts as outpatient Admission and Anticipated Discharge Date Admission Date: July 12, 2021 Results & Data [facility] Vital Signs (Past 12 Hours) Vital Signs Temp Pulse Pulse Resp BP Pulse Ox 07/13/21 06:43 97.5 F L 114 H 18 109/77 96 07/13/21 03:57 97.9 F 100 H 16 100/62 95 07/13/21 02:35 120 H 128/74 07/12/21 23:28 111 H 116/73 07/12/21 23:16 114 H 07/12/21 22:59 98 H 104/70 07/12/21 22:58 113 H 98/63 L 07/12/21 22:55 103 H 102/71 07/12/21 22:50 132 H 109/66 07/12/21 21:09 140 H 115/82 PG Care Time/CCT Total # of Minutes Spent Total Time Spent with Patient: Total time spent is greater than 50% in coordination of care (as documented) at patient's floor/unit and/or counseling patient: Coding Level of Care Code 82113 Subseq Hosp Care Lvl 2 Diagnoses Afib I48.91 CHF (congestive heart failure) I50.9 Coronary artery disease I25.10 Associated angina: without angina Coronary Disease-Associated Artery/Lesion type: [place] artery [place] vs. transplanted heart: [place] heart Hypertension I10 Hypertension type: essential hypertension Hyperlipidemia E78.2 Hyperlipidemia type: mixed hyperlipidemia AAA (abdominal aortic aneurysm) I71.4 Atherosclerosis of both carotid arteries I65.23 Back pain, lumbosacral M54.5 Obesity E66.9 (1) Coronary artery disease Associated angina: without angina Coronary Disease-Associated Artery/Lesion type: [place] artery [place] vs. transplanted heart: [place] heart Qualified Code(s): I25.10 - Atherosclerotic heart disease of [place] coronary artery without angina pectoris (2) Hyperlipidemia Hyperlipidemia type: mixed hyperlipidemia Qualified Code(s): E78.2 - Mixed hyperlipidemia (3) Hypertension Hypertension type: essential hypertension Qualified Code(s): I10 - Essential (primary) hypertension
[2021-07-13] MEDS ORDERED: lisinopril 2.5 MG TAB PO SCH (09:00)
[2021-07-13] MEDS ORDERED: dilTIAZem HCL 30 MG TAB PO SCH ×2 (09:00→11:00)
[2021-07-13] MEDS ORDERED: ISOSORBIDE MONO EXTENDED REL 60 MG TABCR PO SCH (09:00)
[2021-07-13] MEDS ORDERED: MAGNESIUM SULFATE / D5W 1 GM/100 ML BAG IV ONE (09:00)
[2021-07-13] MEDS: HEPARIN SODIUM/DEXTROSE 25,000 UNITS/500 ML BAG IV SCH (09:50)
[2021-07-13] MEDS: POTASSIUM CHLORIDE / WTR 10 MEQ/100 ML PLCT IV SCH ×3 (09:51→12:32)
[2021-07-13] MEDS: POTASSIUM CHLORIDE 10 MEQ / 100ML WTR IV SCH ×3 (11:14→11:47)
[2021-07-13] MEDS: HYDROcodone/ACETAMINOPHEN 10/325 TAB PO PRN ×2 (11:16→21:02)
--- NOTE | 2021-07-13 11:18 | Cardiology Progress Note ---
Date of Service July 13, 2021 Assessment & Plan (1) Atrial fibrillation with RVR: (2) Acute heart failure with reduced ejection fraction and diastolic dysfunction: (3) Coronary artery disease: (4) AAA (abdominal aortic aneurysm): Plan: 80-year-old patient with paroxysmal atrial fibrillation and rapid ventricular response with acute decompensated heart failure. Mildly reduced left ventricular systolic function echocardiogram. Patient has manifested brisk diuresis with improvement in symptoms of shortness of breath and overall edema. He remains in atrial fibrillation with elevated ventricular response rates with borderline blood pressures. Plan: Continue IV anticoagulation with heparin No further diuretics Potassium being supplemented We will hold oral and IV diltiazem given relative hypotension and titrate beta-cody higher. Agree with holding lisinopril and isosorbide We will follow heart rate response to above therapies closely Admission and Anticipated Discharge Date Admission Date: July 12, 2021 Subjective Patient was seen and examined, chart, medications, telemetry reviewed. Patient has remained in atrial fibrillation overnight with intermittently elevated heart rates. Transient hypotension this morning after IV diltiazem. Patient notes breathlessness but heart pounding hard but currently without complaint of chest pain or discomfort. Symptom duration approximately 1 to 2 weeks time with acute dyspnea x48 hours. Patient with brisk diuresis overnight of greater than 3 L Review of Systems Review of Systems: All systems reviewed & are unremarkable except as noted in Subjective Physical Exam Constitutional: + obese; no acute distress Eyes: PERRL, conjunctivae normal, anicteric sclerae ENMT: external ear and nose normal, oropharynx normal Neck: trachea midline, no thyromegaly Respiratory: normal respiratory effort; no respiratory distress and no retractions Auscultation: no rales (Bases bilateral) Cardiovascular: Rate/Rhythm: + tachycardic and + irregularly irregular Heart Sounds: normal S1 and normal S2; no murmur Extremities: + edema (Trace pedal edema improved from admission) Gastrointestinal (Abdomen): Inspection/Auscultation: abdomen normal to inspection and normal bowel sounds; abdomen not distended Percussion/Palpation: abdomen soft; abdomen nontender, no guarding and abdomen not rigid Musculoskeletal: no cyanosis or clubbing, extremities motor strength 5/5 Neurologic: CN's II-XI intact bilaterally and moves all extremities; no focal motor deficits Motor/Sensory: no tremor Psychiatric: Orientation: alert and oriented x 3 Results & Data ([facility]) Vital Signs (Past 12 Hours) Vital Signs Temp Pulse Pulse Resp BP Pulse Ox 07/13/21 10:01 110 H 07/13/21 08:58 145 H 101/67 07/13/21 06:43 36.4 C L 114 H 18 109/77 96 07/13/21 03:57 36.6 C 100 H 16 100/62 95 07/13/21 02:35 120 H 128/74 07/12/21 23:28 111 H 116/73 Laboratory Results Laboratory Results - last 24 hr 07/12/21 07/12/21 07/12/21 10:35 11:26 11:26 WBC RBC Hgb Hct MCV MCH MCHC RDW Std Deviation RDW Coeff of August Plt Count MPV Immature Gran % (Auto) Neut % (Auto) Lymph % (Auto) [place] % (Auto) Eos % (Auto) Baso % (Auto) Neut # (Auto) Lymph # (Auto) [place] # (Auto) Eos # (Auto) Baso # (Auto) Immature Gran # (Auto) APTT PTT Ratio Sodium Potassium Chloride Carbon Dioxide Anion Gap BUN Creatinine Est Cr Clr Drug Dosing Est GFR ( Amer) Est GFR (Non-Af Amer) BUN/Creatinine Ratio Glucose Calcium Magnesium Alkaline Phosphatase 68 Troponin I < 0.015 NT-Pro-B Natriuret Pep 3035 H Total Protein 7.7 Globulin 4.0 Albumin/Globulin Ratio 0.9 TSH 1.620 COVID-19 Eval Order Covid19 at [facility] SARS-CoV-2 (PCR) NEGATIVE 07/12/21 07/12/21 07/13/21 19:07 19:08 02:27 WBC 8.89 RBC 4.14 L Hgb 12.8 L Hct 38.0 L MCV 91.8 MCH 30.9 MCHC 33.7 RDW Std Deviation 44.2 RDW Coeff of August 13.2 Plt Count 189 MPV 10.8 H Immature Gran % (Auto) 0.1 Neut % (Auto) 60.7 Lymph % (Auto) 29.2 [place] % (Auto) 9.0 Eos % (Auto) 0.6 Baso % (Auto) 0.4 Neut # (Auto) 5.39 Lymph # (Auto) 2.60 [place] # (Auto) 0.80 H Eos # (Auto) 0.05 Baso # (Auto) 0.04 Immature Gran # (Auto) 0.01 APTT 28.6 PTT Ratio 1.1 Sodium Potassium Chloride Carbon Dioxide Anion Gap BUN Creatinine Est Cr Clr Drug Dosing Est GFR ( Amer) Est GFR (Non-Af Amer) BUN/Creatinine Ratio Glucose Calcium Magnesium Alkaline Phosphatase Troponin I < 0.015 NT-Pro-B Natriuret Pep Total Protein Globulin Albumin/Globulin Ratio [facility] COVID-19 Eval Order SARS-CoV-2 (PCR) 07/13/21 07/13/21 02:27 02:28 WBC RBC Hgb Hct MCV MCH MCHC RDW Std Deviation RDW Coeff of August Plt Count MPV Immature Gran % (Auto) Neut % (Auto) Lymph % (Auto) [place] % (Auto) Eos % (Auto) Baso % (Auto) Neut # (Auto) Lymph # (Auto) [place] # (Auto) Eos # (Auto) Baso # (Auto) Immature Gran # (Auto) APTT 47.0 H* PTT Ratio 1.8 Sodium 139 Potassium 3.2 L D Chloride 105 Carbon Dioxide 27 Anion Gap 7.0 BUN 18 Creatinine 0.97 Est Cr Clr Drug Dosing 73.5 Est GFR ( Amer) 84.5 Est GFR (Non-Af Amer) 72.9 BUN/Creatinine Ratio 18.6 Glucose 104 H Calcium 9.0 Magnesium 2.0 Alkaline Phosphatase Troponin I NT-Pro-B Natriuret Pep Total Protein Globulin Albumin/Globulin Ratio [facility] COVID-19 Eval Order SARS-CoV-2 (PCR) (1) Coronary artery disease Coronary Disease-Associated Artery/Lesion type: [place] artery [place] vs. transplanted heart: [place] heart Associated angina: without angina Qualified Code(s): I25.10 - Atherosclerotic heart disease of [place] coronary artery without angina pectoris
[2021-07-13] MEDS: METOPROLOL SUCC 50MG EXT REL TAB PO SCH ×2 (13:46→21:04)
[2021-07-13] MEDS: LORazepam 0.5 MG TAB PO PRN (13:52)
[2021-07-13] MEDS: ALFUZOSIN HCL 10 MG TAB PO SCH (16:53)
[2021-07-13] MEDS: SIMVASTATIN 40 MG TAB PO SCH (21:02)
[2021-07-13] MEDS ORDERED: METOPROLOL TARTRATE 1 MG/ML VIAL IV STA (22:25)
[2021-07-13] MEDS ORDERED: Nursing to Pharmacy Communication SCH (23:15)
[2021-07-13] MEDS ORDERED: DIGOXIN 250 MCG in SYRINGE 9 ML IV ONE (23:45)
[2021-07-14] MEDS: LORazepam 0.5 MG TAB PO PRN ×3 (00:04→21:15)
[2021-07-14] MEDS ORDERED: DIGOXIN 250 MCG in SYRINGE 9 ML IV ONE (01:00)
[2021-07-14 06:39] LABS: Basophils # (auto) 0.03 K/uL (0-0.2); Basophils % (auto) 0.4 %; Eosinophils # (auto) 0.12 K/uL (0-0.5); Eosinophils % (auto) 1.7 %; Hematocrit (blood only) 35.3 % (42-52); Immature Granulocytes # (auto) 0.01 K/uL (0.00-0.02); Immature Granulocytes % (auto) 0.1 %; Lymphocytes # (auto) 1.89 K/uL (1.2-3.4); Lymphocytes % (auto) 27.4 %; Mean Corpuscular Hemoglobin 31.1 pg (25-34); Mean Corpuscular Volume 91.5 fL (80-100); Mean Platelet Volume 11.1 fL (7.4-10.4); Monocytes # (auto) 0.78 K/uL (0.11-0.59); Monocytes % (auto) 11.3 %; Neutrophils # (auto) 4.07 K/uL (1.4-6.5); Neutrophils % (auto) 59.1 %; Platelet Count 194 K/uL (130-400); RDW Coefficient of Variation 13.3 % (11.5-14.5); RDW Standard Deviation 43.3 fL (36.4-46.3); Red Blood Count 3.86 M/uL (4.7-6.1)
[2021-07-14 07:02] LABS: BUN Creatinine Ratio 21.8 (10-20); Calcium 8.7 mg/dl (8.5-10.1); Creatinine Clr Calc Pharmacy 67.7 ml/min; Est GFR (African American) 78.6 ml/min; Est GFR (Non-African American) 67.8 ml/min; Potassium 3.3 mmol/L (3.5-5.1)
[2021-07-14 07:03] LABS: Partial Thromboplastin Ratio 1.5; Partial Thromboplastin Time 38.2 Seconds (21.0-31.0)
[2021-07-14] MEDS: HEPARIN SODIUM/DEXTROSE 25,000 UNITS/500 ML BAG IV SCH ×4 (07:09→13:52)
[2021-07-14] MEDS: PANTOprazole 40 MG TAB PO SCH (08:58)
[2021-07-14] MEDS: ISOSORBIDE MONO EXTENDED REL 30 MG TABCR PO SCH (08:58)
[2021-07-14] MEDS: METOPROLOL SUCC 50MG EXT REL TAB PO SCH ×3 (08:58→21:14)
[2021-07-14] MEDS: ASPIRIN 81 MG ECTAB PO SCH (08:58)
[2021-07-14] MEDS: DORZOLAMIDE/TIMOLOL 22.3/6.8MG/ML 10 ML BTL OP SCH ×2 (08:59→21:13)
[2021-07-14] MEDS: POTASSIUM CHLORIDE CRTAB 20 MEQ TABCR PO SCH ×2 (09:02→21:15)
[2021-07-14] MEDS: HYDROcodone/ACETAMINOPHEN 10/325 TAB PO PRN ×2 (10:45→21:15)
[2021-07-14] MEDS: POTASSIUM CHLORIDE 10 MEQ / 100ML WTR IV SCH ×3 (10:46→13:48)
--- NOTE | 2021-07-14 11:26 | Cardiology Progress Note ---
Date of Service July 14, 2021 Assessment & Plan (1) Atrial fibrillation with RVR: (2) Acute heart failure with reduced ejection fraction and diastolic dysfunction: (3) Coronary artery disease: (4) AAA (abdominal aortic aneurysm): Plan: 80-year-old patient with paroxysmal atrial fibrillation and rapid ventricular response with acute decompensated heart failure. Mildly reduced left ventricular systolic function echocardiogram. Patient has manifested brisk diuresis with improvement in symptoms of shortness of breath and overall edema. He remains in atrial fibrillation with elevated ventricular response rates with borderline blood pressures. Plan: Continue IV anticoagulation with heparin There is been little change in heart rate with increased beta-cody and addition of 2 doses of digoxin. Discussed options of management would recommend APRIL guided synchronized cardioversion in a.m. given marginal tolerance of medications from blood pressure standpoint. Would like to proceed proceed with cardioversion tentatively arranged for a.m. Admission and Anticipated Discharge Date Admission Date: July 12, 2021 Subjective Patient was seen and examined, chart, medications, telemetry reviewed. He remains in atrial fibrillation with elevated ventricular response rate. Blood pressure still marginal limiting medication usage. No fevers or chills no cough no worsening dyspnea no edema. Mild indigestion following potassium supplement but no chest pains or discomfort. Patient anticoagulated with heparin Review of Systems Review of Systems: All systems reviewed & are unremarkable except as noted in Subjective Physical Exam Constitutional: + obese; no acute distress Eyes: PERRL, conjunctivae normal, anicteric sclerae ENMT: external ear and nose normal, oropharynx normal Neck: trachea midline, no thyromegaly Respiratory: normal respiratory effort; no respiratory distress and no retractions Auscultation: no rales (Bases bilateral) Cardiovascular: Rate/Rhythm: + tachycardic and + irregularly irregular Heart Sounds: normal S1 and normal S2; no murmur Vessels: + JVD Extremities: + edema (Trace pedal edema improved from admission) Gastrointestinal (Abdomen): Inspection/Auscultation: abdomen normal to inspection and normal bowel sounds; abdomen not distended Percussion/Palpation: abdomen soft; abdomen nontender, no guarding and abdomen not rigid Musculoskeletal: no cyanosis or clubbing, extremities motor strength 5/5 Neurologic: CN's II-XI intact bilaterally and moves all extremities; no focal motor deficits Motor/Sensory: no tremor Psychiatric: Orientation: alert and oriented x 3 Results & Data ([facility]) Vital Signs (Past 12 Hours) Vital Signs Temp Pulse Resp BP Pulse Ox 07/14/21 11:20 36.6 C 125 H 20 100/57 L 95 07/14/21 07:18 36.5 C 132 H 18 118/86 96 07/14/21 04:52 36.4 C L 100 H 16 90/50 L 95 07/14/21 02:47 102 H 07/14/21 01:04 137 H 07/14/21 00:04 133 H 106/76 Laboratory Results Laboratory Results - last 24 hr 07/14/21 07/14/21 07/14/21 05:54 05:54 05:54 WBC 6.90 RBC 3.86 L Hgb 12.0 L Hct 35.3 L MCV 91.5 MCH 31.1 MCHC 34.0 RDW Std Deviation 43.3 RDW Coeff of August 13.3 Plt Count 194 MPV 11.1 H Immature Gran % (Auto) 0.1 Neut % (Auto) 59.1 Lymph % (Auto) 27.4 [place] % (Auto) 11.3 Eos % (Auto) 1.7 Baso % (Auto) 0.4 Neut # (Auto) 4.07 Lymph # (Auto) 1.89 [place] # (Auto) 0.78 H Eos # (Auto) 0.12 Baso # (Auto) 0.03 Immature Gran # (Auto) 0.01 APTT 38.2 H PTT Ratio 1.5 Sodium 140 Potassium 3.3 L Chloride 107 Carbon Dioxide 25 Anion Gap 8.0 BUN 23 H Creatinine 1.03 Est Cr Clr Drug Dosing 67.7 Est GFR ( Amer) 78.6 Est GFR (Non-Af Amer) 67.8 BUN/Creatinine Ratio 21.8 H Glucose 103 H Calcium 8.7 Magnesium 2.0 (1) Coronary artery disease Coronary Disease-Associated Artery/Lesion type: [place] artery [place] vs. transplanted heart: [place] heart Associated angina: without angina Qualified Code(s): I25.10 - Atherosclerotic heart disease of [place] coronary artery without angina pectoris
[2021-07-14 13:41] LABS: Partial Thromboplastin Ratio 1.5; Partial Thromboplastin Time 38.7 Seconds (21.0-31.0)
--- NOTE | 2021-07-14 14:58 | Anesthesiology Consultation ---
Date of Service July 14, 2021 Assessment & Plan (1) Encounter for pre-operative examination: Chart Review Chart Review: Acceptable Risk for Surgery History Height/Weight Height: 5 ft 10 in Weight: 103.2 kg Allergies Allergy/AdvReac Type Severity Reaction Status Date / Time Iodinated Contrast Media Allergy Intermediate HIVES Verified 07/13/21 11:40 shellfish derived Allergy Intermediate HIVES Verified 07/13/21 11:40 Sulfa (Sulfonamide Allergy Intermediate RASH/HIVES Verified 07/13/21 11:40 Antibiotics) fluorescein Allergy Unknown UNKNOWN Verified 07/12/21 12:48 Medications Home Medications Medication Instructions Recorded Confirmed Last Taken cholecalciferol (vitamin D3) 25 2,000 units PO QAM cap 04/26/19 07/12/21 07/11/21 mcg (1,000 unit) capsule (Vitamin D3) dorzolamide 22.3 mg-timolol 6.8 1 drops OP BID ml 04/26/19 07/12/21 07/11/21 mg/mL eye drops (Cosopt) isosorbide mononitrate 60 mg 60 mg PO QAM tab 04/26/19 07/12/21 07/11/21 tablet,extended release 24 hr lisinopril 2.5 mg tablet (Zestril) 2.5 mg PO QAM tab 04/26/19 07/12/21 07/11/21 metoprolol tartrate 50 mg tablet 50 mg PO BID tab 04/26/19 07/12/21 07/11/21 nifedipine 30 mg tablet,extended 30 mg PO QAM tab 04/26/19 07/12/21 07/11/21 release simvastatin 40 mg tablet (Zocor) 40 mg PO HS tab 04/26/19 07/12/21 07/11/21 nitroglycerin 0.4 mg sublingual 0.4 mg SL Q5M PRN tab 07/24/19 07/12/21 07/12/21 tablet 2 tablets diclofenac sodium 1 % topical gel 4 g TOP QID PRN gm 03/13/21 07/12/21 Unknown (Voltaren Arthritis Pain) hydrocodone 10 mg-acetaminophen 1 tab PO TID PRN #90 tab 06/20/21 07/12/21 07/12/21 04:00 325 mg tablet 1 tablet lorazepam 1 mg tablet (Ativan) 1 mg PO DAILY PRN #30 tab 06/20/21 07/12/21 07/11/21 Lactobacillus rhamnosus GG 10 1 cap PO QDL 07/12/21 07/12/21 07/11/21 billion cell capsule (Culturelle) alfuzosin 10 mg tablet,extended 10 mg PO QDD 07/12/21 07/12/21 07/11/21 release 24 hr (Uroxatral) aspirin 81 mg tablet,delayed 81 mg PO QAM 07/12/21 07/12/21 07/11/21 release (Aspirin Low Dose) multivitamin (Daily Multi-Vitamin) 1 tab PO QAM 07/12/21 07/12/21 07/11/21 omeprazole 20 mg capsule,delayed 20 mg PO QAM 07/12/21 07/12/21 07/11/21 release Active Medications Generic Name Dose Route Start Last Admin Trade Name Freq PRN Reason Stop Dose Admin Hydrocodone Bitart/Acetaminophen 1 tab 07/12/21 19:05 07/14/21 10:45 Hydrocodone/Acetaminophen 10/325 Tab PO 07/26/21 19:04 1 tab TID PRN Administration pain Alfuzosin HCl 10 mg 07/12/21 19:15 07/13/21 16:53 Alfuzosin Hcl 10 Mg Tab PO 08/11/21 19:14 10 mg QDD SHERYL Administration Aspirin 81 mg 07/13/21 09:00 07/14/21 08:58 Aspirin 81 Mg Ectab PO 08/12/21 08:59 81 mg QAM SHERYL Administration Dorzolamide/Timolol 1 drops 07/12/21 21:00 07/14/21 08:59 Dorzolamide/Timolol 22.3/6.8mg/Ml 10 Ml Btl OP 08/11/21 20:59 1 drops BID SHERYL Administration Heparin Sodium/Dextrose 25,000 units in 500 mls @ 29 mls/hr 07/12/21 12:00 07/14/21 13:52 Heparin Sodium/Dextrose IV 08/11/21 11:59 Not Given .[id number] SHERYL Protocol 1,450 UNITS/HR Isosorbide Mononitrate 30 mg 07/14/21 09:00 07/14/21 08:58 Isosorbide [place] Extended Rel 30 Mg Tabcr PO 08/13/21 08:59 30 mg QAM SHERYL Administration Lisinopril 2.5 mg 07/13/21 09:00 07/13/21 08:07 Lisinopril 2.5 Mg Tab PO 08/12/21 08:59 2.5 mg QAM SHERYL Administration Lorazepam 0.5 mg 07/13/21 08:44 07/14/21 10:45 Lorazepam 0.5 Mg Tab PO 08/12/21 08:43 0.5 mg Q6H PRN Administration Anxiety Metoprolol Succinate 50 mg 07/13/21 14:00 07/14/21 14:45 Metoprolol Succ 50mg Ext Rel Tab PO 08/12/21 13:59 50 mg TID SHERYL Administration Pantoprazole Sodium 40 mg 07/13/21 09:00 07/14/21 08:58 Pantoprazole 40 Mg Tab PO 08/12/21 08:59 40 mg QAM SHERYL Administration Potassium Chloride 20 meq 07/14/21 09:00 07/14/21 09:02 Potassium Chloride Crtab 20 Meq Tabcr PO 07/15/21 09:01 20 meq BID SHERYL Administration Simvastatin 40 mg 07/12/21 21:00 07/13/21 21:02 Simvastatin 40 Mg Tab PO 08/11/21 20:59 40 mg HS SHERYL Administration Past Medical History Medical History (Updated 07/14/21 @ 14:58 by Oscar García MD) AAA (abdominal aortic aneurysm) Atrial fibrillation with rapid ventricular response CHF (congestive heart failure) Coronary artery disease History of kidney stones History of skin cancer Hypertension PVC (premature ventricular contraction) Past Family History Family History Father Lung cancer Aneurysm of abdominal aorta Aneurysm, thoracoabdominal aortic Mother Emphysema of lung Denies family history of Ovarian cancer Prostate cancer Diabetes Myocardial infarction Breast cancer Hypertension Past Surgical History Surgical History History of angioplasty History of cardiac cath History of cataract extraction with lens replacement History of kidney surgery History of nasal surgery History of tonsillectomy and adenoidectomy History of wisdom tooth extraction Social History Smoking Status: Never smoker tobacco type: cigarettes Smoking cigarettes per day: states occassionally will have a cigarette to this day Hx Alcohol Use: No Alcohol type: wine Hx Substance Use: No substance use type: sedatives, opiates and prescription drug Physical Exam Vital Signs Last Vital Signs Temp 36.6 C 07/14/21 11:20 Pulse 125 H 07/14/21 11:20 Resp 20 07/14/21 11:20 BP 137/74 07/14/21 14:45 Pulse Ox 95 07/14/21 11:20 Testing Laboratory Results 07/14/21 05:54 07/14/21 05:54 PT 10.7 Seconds (9.0-12.0) 07/12/21 10:35 INR 1.1 (0.9-1.1) 07/12/21 10:35 APTT 38.7 Seconds (21.0-31.0) H 07/14/21 12:59 Electrocardiogram Date: 07/12/21 Findings: + AFIB @ (109) and + RBBB (incomplete) Echocardiogram Date: 07/12/21 EF: 45-50% LV Function: dysfunctional (mild global) Valvular Disease: + MR (moderate)
[2021-07-14 15:20] LABS: BUN Creatinine Ratio 18.2 (10-20); Calcium 8.8 mg/dl (8.5-10.1); Creatinine Clr Calc Pharmacy 66.4 ml/min; Est GFR (African American) 76.8 ml/min; Est GFR (Non-African American) 66.3 ml/min; Potassium 4.3 mmol/L (3.5-5.1)
[2021-07-14] MEDS: ALFUZOSIN HCL 10 MG TAB PO SCH (15:58)
[2021-07-14 20:09] LABS: Partial Thromboplastin Ratio 1.6; Partial Thromboplastin Time 42.1 Seconds (21.0-31.0)
[2021-07-14] MEDS: SIMVASTATIN 40 MG TAB PO SCH (21:15)
[2021-07-15] MEDS: HEPARIN SODIUM/DEXTROSE 25,000 UNITS/500 ML BAG IV SCH (00:30)
[2021-07-15 02:19] LABS: Hematocrit (blood only) 34.9 % (42-52); Mean Corpuscular Hemoglobin 31.2 pg (25-34); Mean Corpuscular Hgb Conc 34.4 g/dL (32-36); Mean Corpuscular Volume 90.6 fL (80-100); Mean Platelet Volume 10.4 fL (7.4-10.4); Platelet Count 186 K/uL (130-400); RDW Coefficient of Variation 13.3 % (11.5-14.5); RDW Standard Deviation 43.8 fL (36.4-46.3); Red Blood Count 3.85 M/uL (4.7-6.1); White Blood Count 6.89 K/uL (4.8-10.8)
[2021-07-15 02:39] LABS: BUN Creatinine Ratio 16.4 (10-20); Calcium 8.6 mg/dl (8.5-10.1); Creatinine Clr Calc Pharmacy 76.6 ml/min; Est GFR (African American) 91.3 ml/min; Est GFR (Non-African American) 78.8 ml/min; Magnesium 2.1 mg/dl (1.8-2.4); Partial Thromboplastin Time 52.4 Seconds (21.0-31.0); Potassium 3.7 mmol/L (3.5-5.1)
[2021-07-15 02:41] LABS: Basophils # (auto) 0.04 K/uL (0-0.2); Basophils % (auto) 0.6 %; Eosinophils # (auto) 0.11 K/uL (0-0.5); Eosinophils % (auto) 1.6 %; Immature Granulocytes # (auto) 0.01 K/uL (0.00-0.02); Immature Granulocytes % (auto) 0.1 %; Lymphocytes # (auto) 2.29 K/uL (1.2-3.4); Lymphocytes % (auto) 33.2 %; Monocytes # (auto) 0.82 K/uL (0.11-0.59); Monocytes % (auto) 11.9 %; Neutrophils # (auto) 3.62 K/uL (1.4-6.5); Neutrophils % (auto) 52.6 %
[2021-07-15] MEDS ORDERED: LIDOCAINE 2% MPF LOCAL 5 ML VIAL INFIL ONE (06:58)
[2021-07-15] MEDS ORDERED: fentaNYL citrate 100 MCG/2 ML VIAL ONE (06:58)
[2021-07-15] MEDS ORDERED: PROPOFOL IV EMULSION 10 MG/ML 20 ML VIAL IV ONE (06:58)
[2021-07-15] MEDS ORDERED: CANNULA ONE (07:07)
--- NOTE | 2021-07-15 07:48 | Cardioversion ---
Date of Service July 15, 2021 Electrical Cardioversion Rpt Electrical Cardioversion Report Patient was seen and examined, procedure APRIL guided synchronized electrical cardioversion explained in detail and informed consent obtained. Patient was sedated via anesthesia consult with HR, BP, O2 endtidal CO2 monitoring. APRIL performed without difficulty and no contraindications to cardioversion noted Synchronized electrical cardioversion was performed using 150J, 200J biphasic shocks with successful return to sinus rhythm. Patient aroused having tolerated well.
--- NOTE | 2021-07-15 08:07 | Anesthesiology Progress Note ---
Date of Service July 15, 2021 Anesthesia Post Procedure Vital Signs Vital Signs: Temp Pulse Pulse Resp BP BP Pulse Ox 07/15/21 07:59 73 18 115/78 96 07/15/21 07:45 75 18 114/75 98 07/15/21 07:06 36.5 C 152 H 18 127/99 07/15/21 04:17 36.3 C L 124 H 18 120/79 98 07/15/21 00:05 120 H 07/14/21 23:44 36.3 C L 139 H 18 129/84 97 07/14/21 19:01 36.6 C 116 H 18 123/90 95 07/14/21 16:03 36.5 C 158 H 20 136/61 95 07/14/21 14:45 137/74 07/14/21 11:20 36.6 C 125 H 20 100/57 L 95 07/14/21 08:30 136 H Transfer of Care Handoff Completed per policy Notes Mental Status: alert / awake / arousable Patient Amnestic to Procedure: Yes Nausea / Vomiting: adequately controlled Pain: adequately controlled Airway Patency, RR, SpO2: stable & adequate BP & HR: stable & adequate Hydration State: stable & adequate Anesthetic Complications: no major complications apparent
[2021-07-15] MEDS: ASPIRIN 81 MG ECTAB PO SCH (09:32)
[2021-07-15] MEDS: DORZOLAMIDE/TIMOLOL 22.3/6.8MG/ML 10 ML BTL OP SCH (09:32)
[2021-07-15] MEDS: ISOSORBIDE MONO EXTENDED REL 30 MG TABCR PO SCH (09:33)
[2021-07-15] MEDS: POTASSIUM CHLORIDE CRTAB 20 MEQ TABCR PO SCH (09:33)
[2021-07-15] MEDS: PANTOprazole 40 MG TAB PO SCH (09:33)
[2021-07-15] MEDS: METOPROLOL SUCC 50MG EXT REL TAB PO SCH (09:33)
[2021-07-15] MEDS: HYDROcodone/ACETAMINOPHEN 10/325 TAB PO PRN (09:38)
--- NOTE | 2021-07-15 09:41 | Cardiology Progress Note ---
Date of Service July 15, 2021 Assessment & Plan (1) Atrial fibrillation with RVR: (2) Acute heart failure with reduced ejection fraction and diastolic dysfunction: (3) Coronary artery disease: (4) AAA (abdominal aortic aneurysm): Plan: 80-year-old patient admitted with paroxysmal atrial fibrillation (new onset) and rapid ventricular response with acute decompensated heart failure. Mildly reduced left ventricular systolic function echocardiogram. Initial course notable for volume overload responding to IV diuretics. Heart rate was difficult to control with marginal blood pressures with medications. He was subsequent referred this morning and underwent APRIL guided synchronized electrical cardioversion without incident. Blood pressure improved post procedure Recommendations: Change metoprolol succinate to 50 mg p.o. twice daily (note this is a conversion from metoprolol tartrate) Restart lisinopril 2.5 mg/day Case management to assess for insurance coverage for [employer], patient will require long-term anticoagulation. If not fully covered by insurance, recommend 1 month course with outpatient conversion to warfarin in 3-weeks Arrangements being made for cardiology follow-up 1 to 2 weeks time [facility] Admission and Anticipated Discharge Date Admission Date: July 12, 2021 Subjective Patient was seen and examined, chart, medications, telemetry reviewed. Patient was referred and underwent transesophageal echocardiogram guided synchronized electrical cardioversion this morning. Patient tolerated procedure well with successful conversion to sinus rhythm. No current complaints. No dizziness or lightheadedness. No shortness of breath with patient up in room Review of Systems Review of Systems: All systems reviewed & are unremarkable except as noted in Subjective Physical Exam Constitutional: + obese; no acute distress Eyes: PERRL, conjunctivae normal, anicteric sclerae ENMT: external ear and nose normal, oropharynx normal Neck: trachea midline, no thyromegaly Respiratory: normal respiratory effort; no respiratory distress and no retractions Auscultation: no rales (Bases bilateral) Cardiovascular: Rate/Rhythm: regular rate and regular rhythm Heart Sounds: normal S1 and normal S2; no murmur Gastrointestinal (Abdomen): Inspection/Auscultation: abdomen normal to inspection and normal bowel sounds; abdomen not distended Percussion/Palpa tion: abdomen soft; abdomen nontender, no guarding and abdomen not rigid Musculoskeletal: no cyanosis or clubbing, extremities motor strength 5/5 Neurologic: CN's II-XI intact bilaterally and moves all extremities; no focal motor deficits Motor/Sensory: no tremor Psychiatric: Orientation: alert and oriented x 3 Results & Data ([facility]) Vital Signs (Past 12 Hours) Vital Signs Temp Pulse Pulse Resp BP BP Pulse Ox 07/15/21 09:10 84 18 127/79 96 07/15/21 08:40 77 18 124/73 96 07/15/21 08:10 36.3 C L 77 18 120/76 96 07/15/21 07:59 73 18 115/78 96 07/15/21 07:45 75 18 114/75 98 07/15/21 07:06 36.5 C 152 H 18 127/99 07/15/21 04:17 36.3 C L 124 H 18 120/79 98 07/15/21 00:05 120 H 07/14/21 23:44 36.3 C L 139 H 18 129/84 97 Laboratory Results Laboratory Results - last 24 hr 07/14/21 07/14/21 07/14/21 12:59 14:50 19:49 WBC RBC Hgb Hct MCV MCH MCHC RDW Std Deviation RDW Coeff of August Plt Count MPV Immature Gran % (Auto) Neut % (Auto) Lymph % (Auto) [place] % (Auto) Eos % (Auto) Baso % (Auto) Neut # (Auto) Lymph # (Auto) [place] # (Auto) Eos # (Auto) Baso # (Auto) Immature Gran # (Auto) APTT 38.7 H 42.1 H PTT Ratio 1.5 1.6 Sodium 139 Potassium 4.3 D Chloride 106 Carbon Dioxide 25 Anion Gap 8.0 BUN 19 H Creatinine 1.05 Est Cr Clr Drug Dosing 66.4 Est GFR ( Amer) 76.8 Est GFR (Non-Af Amer) 66.3 BUN/Creatinine Ratio 18.2 Glucose 113 H Calcium 8.8 Magnesium 07/15/21 07/15/21 07/15/21 02:09 02:09 02:09 WBC 6.89 RBC 3.85 L Hgb 12.0 L Hct 34.9 L MCV 90.6 MCH 31.2 MCHC 34.4 RDW Std Deviation 43.8 RDW Coeff of August 13.3 Plt Count 186 MPV 10.4 Immature Gran % (Auto) 0.1 Neut % (Auto) 52.6 Lymph % (Auto) 33.2 [place] % (Auto) 11.9 Eos % (Auto) 1.6 Baso % (Auto) 0.6 Neut # (Auto) 3.62 Lymph # (Auto) 2.29 [place] # (Auto) 0.82 H Eos # (Auto) 0.11 Baso # (Auto) 0.04 Immature Gran # (Auto) 0.01 APTT 52.4 H* PTT Ratio 2.0 Sodium 141 Potassium 3.7 Chloride 109 H Carbon Dioxide 25 Anion Gap 7.0 BUN 15 Creatinine 0.91 Est Cr Clr Drug Dosing 76.6 Est GFR ( Amer) 91.3 Est GFR (Non-Af Amer) 78.8 BUN/Creatinine Ratio 16.4 Glucose 102 H Calcium 8.6 Magnesium 2.1 (1) Coronary artery disease Associated angina: without angina Coronary Disease-Associated Artery/Lesion type: [place] artery [place] vs. transplanted heart: [place] heart Qualified Code(s): I25.10 - Atherosclerotic heart disease of [place] coronary artery without angina pectoris
--- NOTE | 2021-07-15 14:30 | Electrocardiogram Report ---
Test Reason : Blood Pressure : / mmHG Vent. Rate : 073 BPM Atrial Rate : 073 BPM P-R Int : 196 ms QRS Dur : 094 ms QT Int : 404 ms P-R-T Axes : 088 -09 033 degrees QTc Int : 445 ms Poor data quality, interpretation may be adversely affected Normal sinus rhythm Incomplete right bundle branch block Inferior infarct , age undetermined Abnormal ECG When compared with ECG of 12-JUL-2021 10:59, Sinus rhythm has replaced Atrial fibrillation Vent. rate has decreased BY 36 BPM Inferior infarct is now Present Confirmed by Geovany Reynaga ([id number]) on 07/15/2021 2:29:49 PM Referred By: REFERRED SELF Confirmed By:Geovany Reynaga
[2021-07-15] MEDS ORDERED: APIXABAN 5 MG TABLET PO SCH (14:45)
--- NOTE | 2021-07-15 15:12 | Communication Note ---
Date of Service: July 15, 2021 Case management discussed patient. Eliquis covered by medical insurance and cost $30 per month. Eliquis begun, heparin discontinued Would continue furosemide 20 mg every other day on discharge. Potassium 10 mg/day Hold nifedipine for now
[2021-07-15] MEDS ORDERED: FUROSEMIDE 20 MG TAB PO SCH (15:15)
--- NOTE | 2021-07-15 15:49 | Discharge Summary ---
Date of Service July 15, 2021 Admission HPI Per Admitting Provider 80 YOM with past medical history of: [place](1991) with angioplasty, CAD, HTN, HLD, Obesity, previous smoker, chronic back pain 3.1 cm AAA. Patient comes in today for complaints of chest tightness and swelling in his bilateral lower legs. This has been going on for the past two weeks. The chest tightness occurs across his chest and is associated with increase in dyspnea. The dyspnea has been worse for the past week. This pressure can come with activity or at rest. He denies any radiation of the pressure or nausea or vomiting and it has not been associated with diaphoresis, light headedness or dizziness. The lower extremity swelling started in his feet about 2 weeks ago an continued to progress to right below the knees. It is equal bilaterally. He denies orthopnea, cough, or secretions. In the EMD, it was noted that he was in narrow complex tachycardia with HR 140-150s. He was given 10mg IV Diltiazem which decreased his HR to 120-130 and was noted to be in new onset atrial fibrillation. He had routine labs drawn to include BNP and Troponin I. His electrolytes including Magnesium were in normal range, his Troponin I was negative, his BNP was elevated to 3035. His TSH is 1.620. He was then placed on a Diltazem drip at 10mg/hour given 40mg IV Lasix and hospitalist service was notified for admission. Patient has not taken his medications at home this morning to include his Metoprolol tartrate of 50mg. Patient will be started on Heparin drip, admitted to PCU for rate control, ECHO, continue to diurese and consult cardiology. Patient follows with [facility]. Patient has received his COVID vaccine and his COVID test on admission is: Admission Exam Per Admitting Provider PHYSICAL EXAM: General: awake, alert, no apparent distress Head: Normocephalic, atraumatic ENT: PERRL, EOMI, no pharyngeal exudate, mucous membranes moist Neuro: AAO x 3, speech clear and appropriate, strength intact bilaterally 5/5, sensation intact and equal all extremities and dermatomes, no pronator drift Chest: equal rise and fall of the chest, no accessory muscle use, no heaves or thrills, Clear to auscultation, on room air, Cardiac: Irregular rate and rhythm, afib, skin warm dry, cap refill ~3 seconds, peripheral pulses +2 no JVD, no murmur, 2+ edema in shins, 3+edema to feet and ankles bilaterally GI: NABS x 4 quadrants, soft, nontender to palpation, no rebound, guarding or tenderness : Spontaneously voiding, no pain, no CVA tenderness, Extremities: Normal inspection, no erythema, calfs nontender to palpation Psych: Normal mood and affect Skin: no rash or erythema Principal Diagnosis A. fib with RVR Discharge Exam General: A&Ox3. NAD. Cooperative. HEENT: Atraumatic, normocephalic. Visual acuity and hearing grossly intact. Pulm: CTAB A&P. -wheezes, -rales, -rhonchi. Symmetrical chest rise. No increase work of breathing. No respiratory distress. Cardiac: RRR, -mrg. Radial pulses intact and symmetrical. Abdominal: Nontender, nondistended, soft. BS present. Extremities: Warm, dry. Moving all extremities equally, no focal motor deficits. Sensation to soft touch intact in hands and feet. Discharge Data Allergies Allergy/AdvReac Type Severity Reaction Status Date / Time Iodinated Contrast Media Allergy Intermediate HIVES Verified 07/13/21 11:40 shellfish derived Allergy Intermediate HIVES Verified 07/13/21 11:40 Sulfa (Sulfonamide Allergy Intermediate RASH/HIVES Verified 07/13/21 11:40 Antibiotics) fluorescein Allergy Unknown UNKNOWN Verified 07/12/21 12:48 Consultations 07/12/21 11:20 ED Decision to Admit Stat 07/12/21 19:05 Consult Cardiology Routine 07/15/21 07:15 Consult Anesthesiology Routine Procedures Performed Operation Date: 07/15/21 07:15 Actual Procedures p Echo Transesophageal - Todd Kennedy MD s Echo Color Flow - Todd Kennedy MD s Cardioversion - Todd Kennedy MD Hospital Course (1) Afib: Brent is an 80-year-old male who presented with fatigue and he was found to have A. fib with RVR on admission. His heart rate during admission was difficult to control with pharmacotherapy, he underwent APRIL followed by electrical cardioversion and was discharged home to outpatient follow-up. To do as outpatient: 1. Reevaluate blood pressure and rate control. Note metoprolol converted to succinate on discharge 2. Follow-up with cardiology in 1 to 2 weeks A. fib with RVR - Patient with new onset afib with evidence of worsening HFrEF - CHADSVASC 2, HASBLED- 1 -Heparin was used for initial anticoagulation followed by conversion to apixaban 5 mg p.o. twice daily -Patient was converted to metoprolol succinate 50 mg twice daily (converted from tartrate) Recommended follow-up with [facility] cardiology in 1 to 2-week Poor rate control initially with metoprolol, CCB, digoxin. APRIL was performed followed by electrical cardioversion 07/15 successfully. (2) CHF (congestive heart failure): HFpEF with exacerbation maybe related to rate, remained euvolemic 07/14 - Will need rate controlled- continue BB - ECHO shows EF 45-50, global hypo kinesis (3) Coronary artery disease: CAD with angioplasty in 1991 - Stress ECHO in 2020- fixed wall motion abnormality without ischemia, mild MR - Continue Metoprolol as noted above - Continue Isosorbide, reduce dose to help with blood pressure - Continue ASA - Continue statin simvastatin 40mg daily - Baseline ECG from 2019 with NSR and Incomplete RBBB (4) Hypertension: Appears well controlled as outpatient with SBP<130s Metoprolol as above Lisinopril restarted on discharge, initially held Nifedipine resumed on discharge (5) Hyperlipidemia: As above (6) AAA (abdominal aortic aneurysm): 3.1 cm AAA Aug 2020- follows with cardiology for imaging - As above BP, BB, lipid managemnt (7) Atherosclerosis of both carotid arteries: 50% bilateral without stenosis 2019 - as above (8) Back pain, lumbosacral: Chronic- is on narcotics at home (9) Obesity: Continue weight loss efforts as outpatient Total Time Total Time Spent Total Time Spent (In Minutes): Total time spent day of discharge including documentation, direct patient care, review of labs and images, and coordination of care approximately 35 minutes. Discharge Plan Discharge Items Patient Disposition: Home - Self-Care Reason For Visit: NEW ONSET AFIB WITH RVR Discharge Diagnosis: New onset A. fib Condition on Discharge: Fair Activity: Resume your previous activity Non-emergency contact: Primary Care Provider and Planning Assistant Call non-emergency contact if: you have any medication questions, your symptoms worsen and you have a fever Follow-up/Referrals: Carlos Manuel Baez MD [Primary Care Provider] - Todd Kennedy MD [Physician] - Diet: Heart Healthy Add Attending Provider Instructions: You are seen in the hospital for fatigue and were found to have new onset atrial fibrillation. Your atrial fibrillation did not initially respond well to medications, you underwent a synchronized cardioversion with return to a normal heart rhythm afterwards. It is been recommended that you start a blood thinner, discussed below, as A. fib can recur and increase your risk of blood clot/strokes occurring. You have been placed on medications at the recommendation of cardiology as noted below. You have had follow-up appoin tments made as below. You have been started on a blood thinner, Eliquis. Please take Eliquis 5 mg by mouth twice daily. This is a blood thinner which can protect you from blood clots and stroke, but will also make your blood thinner and make bleeding easier/worse. If you sustain a small cut please apply firm direct pressure for 10 minutes before checking it. If you sustain a moderate or larger cut, or a small cut which does not improve after 10 minutes of pressure, please call your primary care physician for recommendations or call 911 to present to the emergency department for evaluation if severe. You have been started on a heart medicine, metoprolol succinate. Please take metoprolol succinate 50 mg twice daily. Please note this replaces your previous metoprolol tartrate which you should stop taking. This medication can lower blood pressure, if you experience any lightheadedness, dizziness, feeling of passing out or nearly passing out, or low blood pressure please contact your primary care provider/quantitative equity head and discuss this medication. A followup appointment is being scheduled for you with Dr. Baez. You should be seen seen within 1 week. You should receive a call to confirm this appointment. If you do not receive a call within 48 hours to confirm this appointment, or need to change this appointment, please call the provider's office at [phone]. A followup appointment is being scheduled for you with cardiology, Dr. Kennedy. You should be seen seen within 1 month. You should receive a call to confirm this appointment. If you do not receive a call within 48 hours to confirm this appointment, or need to change this appointment, please call the provider's office at . If you develop any new or worsening symptoms including fever, chills, sweats, chest pain, chest pressure, difficulty breathing, uncontrolled nausea/vomiting, rash, wheezing, passing out or nearly passing out, bleeding, black/bloody bowel movements, or other new or concerning symptoms please call your primary care physician at [phone], or call 911 for re-evaluation in the emergency department if you are very concerned. Pending Studies at Discharge: No Stand-Alone Forms: My [facility] [employer], Smoking Cessation Medications and DC Order Prescriptions: New Eliquis 5 mg Tablet 5 mg PO BID 30 Days Qty: 60 RF: 0 metoprolol succinate 50 mg Tablet Extended Release 24 Hr 50 mg PO BID 30 Days Qty: 60 RF: 0 Continued hydrocodone-acetaminophen 10-325 mg tablet 1 tab PO TID PRN (Reason: pain) Qty: 90 RF: 0 lorazepam [Ativan] 1 mg tablet 1 mg PO DAILY PRN (Reason: pain) Qty: 30 RF: 0 dorzolamide-timolol [Cosopt] 22.3-6.8 mg/mL drops 1 drops OP BID RF: 0 isosorbide mononitrate 60 mg tablet extended release 24 hr 60 mg PO QAM RF: 0 lisinopril [Zestril] 2.5 mg tablet 2.5 mg PO QAM RF: 0 nifedipine 30 mg tablet extended release 30 mg PO QAM RF: 0 cholecalciferol (vitamin D3) [Vitamin D3] 1,000 unit capsule 2,000 units PO QAM RF: 0 simvastatin [Zocor] 40 mg tablet 40 mg PO HS RF: 0 nitroglycerin 0.4 mg tablet, sublingual 0.4 mg SL Q5M PRN (Reason: Chest Pain) RF: 0 diclofenac sodium [Voltaren Arthritis Pain] 1 % gel 4 g TOP QID PRN (Reason: Pain) RF: 0 multivitamin [Daily Multi-Vitamin] Tablet 1 tab PO QAM RF: 0 aspirin [Aspirin Low Dose] 81 mg Tablet,Delayed Release (Dr/Ec) 81 mg PO QAM RF: 0 Culturelle 10 billion cell Capsule 1 cap PO QDL RF: 0 omeprazole 20 mg capsule,delayed release(DR/EC) 20 mg PO QAM RF: 0 alfuzosin [Uroxatral] 10 mg tablet extended release 24 hr 10 mg PO QDD RF: 0 Discontinued metoprolol tartrate 50 mg tablet 50 mg PO BID RF: 0 Discharge Orders: Discharge Order (Routine); Ordered 07/15/21 Ordered By: Carlos Manuel Santos Admission Data Admit Date/Time: 07/12/21 12:02 Attending Provider: Carlos Manuel Santos Admit Provider: Shayy Demarco Primary Care Provider: Carlos Manuel Baez Other Providers: Shayy Demarco ; Smooth Kelley ; Ines Willis ; Lilli Sanchez ; Caroline Delaney ; Maribell Kilpatrick ; Fanta Aaron ; Oscar García ; Kendrick Ortiz ; Delio Regalado ; Roger Warner ; Charles Warner ; Anuel Still ; Blanka Hester ; Noel Lemons ; Connor Reyes ; Carmine Hernandez ; Hans Albert ; Diamond Bobo ; Arnoldo Collins ; Ashley Woodward ; Deya Collins ; Sadiq Vazquez ; Krystina Warren ; Roman Torres ; Lily Mendoza ; Cecille Browning ; Krystina Ramirez ; Priscilla Rebollar ; Ruben Simental ; Radha Hidalgo ; Constance Husain ; Darleen Ornelas ; Mary Talbot ; Brando Talbot V ; Russell Palma ; Lilli Keen ; Jose York ; Freya Melchor ; Bailey Carlson ; Brando Allen ; Tremaine Bobo ; Cabrera Aragon ; Sandy Heaton ; Renu Valerio ; Brando Baer ; Darleen Julio ; Graeme Soto ; Feroz Albert ; Adali Crow ; Keny Lopes ; Rosalba Xiao ; Nigel Chapman ; Kristofer Celeste ; Keny Medrano ; Oscar Spence Jr ; Kim Rosenberg Other Interventions: Discharge Summary Assessment (RN) Last Done: 07/15/21 15:46 Coding Level of Care Code D/C DAY MANAGEMENT >30 MINS Diagnoses Afib I48.91 CHF (congestive heart failure) I50.9 Coronary artery disease I25.10 Associated angina: without angina Coronary Disease-Associated Artery/Lesion type: [place] artery [place] vs. transplanted heart: [place] heart Hypertension I10 Hypertension type: essential hypertension Hyperlipidemia E78.2 Hyperlipidemia type: mixed hyperlipidemia AAA (abdominal aortic aneurysm) I71.4 Atherosclerosis of both carotid arteries I65.23 Back pain, lumbosacral M54.5 Obesity E66.9
[2021-07-15] MEDS ORDERED: METOPROLOL SUCC 50MG EXT REL TAB PO SCH (21:00)
[2021-07-16] MEDS ORDERED: POTASSIUM CHLORIDE 10 MEQ TABCR PO SCH (09:00)
== END 2021-07-15 16:41 | disposition home or self-care (01) | DRG 308 ==
LOC: ED 10:06 → EDINP 12:02 → SUATTDRO 12:02 → 2S 15:48